=== PATIENT | female | born 1970 | race Caucasian/White ===

== ENCOUNTER 2018-01-22 19:24 | Emergency (ER) | payer OTHER, SELFPAY ==
[2018-01-22 19:25] VITALS: BP 164/96; PULSE 95; RESP 18; TEMP 36.7; O2SAT 99; BMI 36.6
--- NOTE | 2018-01-22 19:59 | ED.VISSUMM ---
- ER Visit Summary Date of Service: 01/22/18 Chief Complaint: Headache History of Present Illness: The patient is a 47 F presenting for evaluation secondary to headache. Patient reports over the course of the last week she has had sinus congestion, sinus pressure, and frontal headache. It has been associated with nausea and chills. She does endorse that she has some rhinorrhea, denies any sore throat. No vomiting or diarrhea. No visual changes numbness or weakness. Qprq-lje-kenbrud remedies have not alleviated this. Physical Examination: Vital signs: Within normal limits General: Well-nourished well-developed no acute distress Head: Normocephalic atraumatic, no temporal artery tenderness or vesicular rash noted. Right maxillary sinus tenderness to percussion. TMs show serous effusion bilaterally Eyes: PERRLA, EOMI. Neck: Supple, no lymphadenopathy, no JVD no meningismus. Negative Brudzinski, Kernig, jolt, and heel strike Cardiovascular: Heart regular rate and rhythm no murmurs Respiratory: Lung sounds clear to auscultation bilaterally no respiratory distress Abdomen: Soft, nontender Extremities: Nontender, no edema Skin: Normal color, no rash, no evidence of petechia Neuro: Alert and oriented ?4, cranial nerves II through XII intact, normal strength, sensation Test Results: None indicated Emergency Department Course and Treatment: Patient presented with symptoms of bacterial sinusitis. Patient was treated with Toradol doxycycline and Afrin. She will be discharged with a course of doxycycline, Naprosyn, and Afrin Disposition: Discharge Impression: 1. Bacterial sinusitis This note was generated with [employer] dictation software. It may contain incorrect words, spelling, and punctuation that were not noted in review of the chart prior to signing ED Disposition - Plan for ED Patient: Disposition: Home or Assisted Living Chief Complaint: Headache Diagnosis: Bacterial sinusitis Instructions: ED Headache Sinus Prescriptions: Naproxen [Naprosyn] 500 mg PO BID PRN #20 tab Doxycycline Hyclate 100 mg PO BID #28 cap
--- NOTE | 2018-01-22 20:03 | ED.DCSUM_ITS ---
- ER Visit Summary Date of Service: 01/22/18 Chief Complaint: Headache History of Present Illness: The patient is a 47 F presenting for evaluation secondary to headache. Patient reports over the course of the last week she has had sinus congestion, sinus pressure, and frontal headache. It has been associa riddhi with nausea and chills. She does endorse that she has some rhinorrhea, denies any sore throat. No vomiting or diarrhea. No visual changes numbness or weakness. Noew-bco-cnupulp remedies have not alleviated this. Physical Examination: Vital signs: Within normal limits General: Well-nourished well-developed no acute distress Head: Normocephalic atraumatic, no temporal artery tenderness or vesicular rash noted. Right maxillary sinus tenderness to percussion. TMs show serous effusion bilaterally Eyes: PERRLA, EOMI. Neck: Supple, no lymphadenopathy, no JVD no meningismus. Negative Brudzinski, Kernig, jolt, and heel strike Cardiovascular: Heart regular rate and rhythm no murmurs Respiratory: Lung sounds clear to auscultation bilaterally no respiratory distress Abdomen: Soft, nontender Extremities: Nontender, no edema Skin: Normal color, no rash, no evidence of petechia Neuro: Alert and oriented ?4, cranial nerves II through XII intact, normal strength, sensation Test Results: None indicated Emergency Department Course and Treatment: Patient presented with symptoms of bacterial sinusitis. Patient was treated with Toradol doxycycline and Afrin. She will be discharged with a course of doxycycline, Naprosyn, and Afrin Disposition: Discharge Impression: 1. Bacterial sinusitis This note was generated with [employer] dictation software. It may contain incorrect words, spelling, and punctuation that were not noted in review of the chart prior to signing ED Disposition - Plan for ED Patient: Disposition: Home or Assisted Living Chief Complaint: Headache Diagnosis: Bacterial sinusitis Instructions: ED Headache Sinus Prescriptions: Naproxen [Naprosyn] 500 mg PO BID PRN #20 tab Doxycycline Hyclate 100 mg PO BID #28 cap
[2018-01-22] MEDS: Doxycycline 100 MG CAPSULE PO (20:22)
[2018-01-22] MEDS: Ketorolac 30 MG/ML Syringe IM (20:22)
[2018-01-22] MEDS: Oxymetazoline 0.05% 1 SPRAY SPRAY.BTL 2 SPRAY NASAL (20:34)
[2018-01-22] MEDS: Ondansetron ODT 4 MG Tablet PO (20:34)
--- OUTSIDE RECORDS SUMMARY | 2018-04-26 10:13 | XMS RPT_ITS ---
:1970 Author Organization [facility] Care Team Providers Name Role Phone John Bernal Attending Unavailable Primay Care Physicia, No Primary Care Unavailable PROBLEMS PROBLEMS DATE TYPE CONDITION / ATTENDING STATUS SOURCE CODE 11/03/2017 Active Pain in right NA Active [facility] foot / Other [place] M79.671(ICD-10) Repository 11/03/2017 Active Pain in right NA Active [facility] ankle and Other [place] joints of right Repository foot / M25.571(ICD-10) 11/03/2017 Admitting Unknown / NA Active [facility] diagnosis UNK(Unknown) Health System Repository PROCEDURES PROCEDURES No Procedure Records FoundRESULTS RESULTS EMERGENCY DEPARTMENT Observed: 01/23/2018 Status: C Source: [place] SUMMARY 8:54 AM [facility] REPOSITORY [facility] Medical Records Department [address] [place] [address] Emergency Department Summary 01/22/181958 MR#: [id number] Acct: [id number] Name: GALE CHUN Rep #: [id number] : 1970 47 From: John Bernal MD PCP: Care Physician, No Primary Status: DEP ER ADDENDUM by Reji Weaver MD on 01/23/18 at 0853 At 0850 I was contacted by pharmacy regarding prescription for doxycycline. I was informed the medication was not covered on his insurance plan and the cost was greater than $80. The prescription was changed to Augmentin 875 mg tab 1 twice daily #20, which is covered by his insurance plan. Date Reji Weaver MD cc: No Primary Care Physician * Addendum - ER Visit Summary Date of Service: 01/22/18 Chief Complaint: Headache History of Present Illness: The patient is a 47 F presenting for evaluation secondary to headache. Patient reports over the course of the last week she has had sinus congestion, sinus pressure, and frontal headache. It has been associated with nausea and chills. She does endorse that she has some rhinorrhea, denies any sore throat. No vomiting or diarrhea. No visual changes numbness or weakness. Syus-dzr-ddwodfq remedies have not alleviated this. Physical Examination: Vital signs: Within normal limits General: Well-nourished well-developed no acute distress Head: Normocephalic atraumatic, no temporal artery tenderness or vesicular rash noted. Right maxillary sinus tenderness to percussion. TMs show serous effusion bilaterally Eyes: PERRLA, EOMI. Neck: Supple, no lymphadenopathy, no JVD no meningismus. Negative Brudzinski, Kernig, jolt, and heel strike Cardiovascular: Heart regular rate and rhythm no murmurs Respiratory: Lung sounds clear to auscultation bilaterally no respiratory distress Abdomen: Soft, nontender Extremities: Nontender, no edema Skin: Normal color, no rash, no evidence of petechia Neuro: Alert and oriented 4, cranial nerves II through XII intact, normal strength, sensation Test Results: None indicated Emergency Department Course and Treatment: Patient presented with symptoms of bacterial sinusitis. Patient was treated with Toradol doxycycline and Afrin. She will be discharged with a course of doxycycline, Naprosyn, and Afrin Disposition: Discharge Impression: 1. Bacterial sinusitis This note was generated with [employer] dictation software. It may contain incorrect words, spelling, and punctuation that were not noted in review of the chart prior to signing ED Disposition - Plan for ED Patient: Disposition: Home or Assisted Living Chief Complaint: Headache Diagnosis: Bacterial sinusitis Instructions: ED Headache Sinus Prescriptions: Naproxen [Naprosyn] 500 mg PO BID PRN #20 tab Doxycycline Hyclate 100 mg PO BID #28 cap What to do if you have Problems For any increased pain, shortness of breath, bleeding, nausea or vomiting, chest pain, or any unexpected problems, contact your Primary Care Provider. Call [facility] ([phone]) or report to the closest Emergency Room. Call 911 if necessary. 01/23/18 0019 <Electronically signed by John Beranl MD> Date John Bernal MD Cosigner Signature (If Indicated): Date CC: No Primary Care Physician FOOT 3V AP/LAT/OBL Observed: 11/03/2017 Status: F Source: [facility] 10:32 PM HEALTH SYSTEM REPOSITORY Performed at [facility] APPROVED BY: LULU DUNN MD Right ankle and foot on 11/03/2017. HISTORY: Right dorsal and plantar foot pain that radiates to right ankle. No known injury. COMPARISON: None. FINDINGS: 3 views right ankle demonstrate no fracture, gross malalignment or evidence of tibiotalar joint effusion. There is bimalleolar soft tissue prominence which could represent swelling or baseline habitus. 3 views right foot demonstrate no acute fracture or dislocation. Normal variant developmental fusion of the 5th DIP joint. Relatively low attenuating soft tissue prominence dorsal to the metatarsals could similarly represent baseline habitus, with an element of soft tissue swelling not excluded. Mild relative joint space narrowing at the lateral first MTP joint. IMPRESSION: No fracture or gross malalignment of the right ankle or foot. Soft tissue prominence in the bimalleolar and dorsal metatarsal distributions could represent baseline habitus or element of swelling, requiring clinical correlation. ANKLE 3V AP/LAT/OBL Observed: 11/03/2017 Status: F Source: [facility] 10:32 PM HEALTH SYSTEM REPOSITORY Performed at [facility] APPROVED BY: LULU DUNN MD Right ankle and foot on 11/03/2017. HISTORY: Right dorsal and plantar foot pain that radiates to right ankle. No known injury. COMPARISON: None. FINDINGS: 3 views right ankle demonstrate no fracture, gross malalignment or evidence of tibiotalar joint effusion. There is bimalleolar soft tissue prominence which could represent swelling or baseline habitus. 3 views right foot demonstrate no acute fracture or dislocation. Normal variant developmental fusion of the 5th DIP joint. Relatively low attenuating soft tissue prominence dorsal to the metatarsals could similarly represent baseline habitus, with an element of soft tissue swelling not excluded. Mild relative joint space narrowing at the lateral first MTP joint. IMPRESSION: No fracture or gross malalignment of the right ankle or foot. Soft tissue prominence in the bimalleolar and dorsal metatarsal distributions could represent baseline habitus or element of swelling, requiring clinical correlation. 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 States she recently moved here from [facility] and has been staying at a hotel. States she's been on the treadmill, elliptical, and exercise bike at a hotel and believes that she is wearing the wrong shoes. States after running on the treadmill on 11/01/17 she can to have pain to the dorsal aspect of the right foot, worse with walking. States his pain is gradually worsened over the past 3 days. She denies numbness/tingling, fall/injury/trauma, color change, and any other pain. History provided by: Patient and medical records court interpreter used: No PAST MEDICAL HISTORY Diagnosis Date - Psychiatric disorder depression - Renal disorder PAST SURGICAL HISTORY Procedure Laterality Date - CHOLECYSTECTOMY HX No family history on file. Social History Social History Main Topics - Smoking status: Current Every Day Smoker - Smokeless tobacco: Never Used - Alcohol use No - Drug use: Unknown - Sexual activity: Not on file ALLERGIES No Known Allergies Review of Systems Constitutional: Negative for chills and fever. HENT: Negative for sore throat. Eyes: Negative for redness. Respiratory: Negative for shortness of breath. Cardiovascular: Negative for chest pain. Gastrointestinal: Negative for abdominal pain, diarrhea, nausea and vomiting. Genitourinary: Negative for dysuria. Musculoskeletal: Negative for back pain and neck pain. R foot pain radiating up into R ankle Skin: Negative for color change and rash. Neurological: Negative for dizziness, syncope, weakness, numbness and headaches. Psychiatric/Behavioral: Negative for confusion. Physical Exam BP 163/87 Pulse 75 Temp 97.9 Resp 16 Wt 236 lb (107.0kg) SpO2 98% LMP 10/21/2017 Physical Exam Constitutional: She is oriented to person, place, and time. She appears well-developed and well-nourished. No distress. HENT: Head: Normocephalic and atraumatic. Eyes: Conjunctivae and EOM are normal. Neck: Normal range of motion. Neck supple. Cardiovascular: Normal rate, regular rhythm, normal heart sounds and intact distal pulses. Exam reveals no gallop and no friction rub. No murmur heard. Pulmonary/Chest: Effort normal and breath sounds normal. No respiratory distress. She has no wheezes. She has no rales. Musculoskeletal: Normal range of motion. She exhibits no edema or deformity. Right knee: She exhibits normal range of motion. No tenderness found. Right ankle: She exhibits no swelling, no deformity, no laceration and normal pulse. Tenderness. AITFL (Minimal) tenderness found. No lateral malleolus and no medial malleolus tenderness found. Right lower leg: She exhibits no tenderness, no bony tenderness and no swelling. Right foot: There is tenderness (Dorsal and lateral aspect). There is normal range of motion, no swelling, normal capillary refill, no crepitus and no deformity. Neurological: She is alert and oriented to person, place, and time. Skin: Skin is warm and dry. Capillary refill takes less than 2 seconds. No rash noted. She is not diaphoretic. Psychiatric: She has a normal mood and affect. Nursing note and vitals reviewed. 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 HISTORY: Right dorsal and plantar foot pain that radiates to right ankle. No known injury. COMPARISON: None. FINDINGS: 3 views right ankle demonstrate no fracture, gross malalignment or evidence of tibiotalar joint effusion. There is bimalleolar soft tissue prominence which could represent swelling or baseline habitus. 3 views right foot demonstrate no acute fracture or dislocation. Normal variant developmental fusion of the 5th DIP joint. Relatively low attenuating soft tissue prominence dorsal to the metatarsals could similarly represent baseline habitus, with an element of soft tissue swelling not excluded. Mild relative joint space narrowing at the lateral first MTP joint. IMPRESSION: No fracture or gross malalignment of the right ankle or foot. Soft tissue prominence in the bimalleolar and dorsal metatarsal distributions could represent baseline habitus or element of swelling, requiring clinical correlation. XR ANKLE GENERAL 3V AP/LAT/OBL RT Result Value Ref Range Community Service Officer Coordinator Right ankle and foot on 11/03/2017. HISTORY: Right dorsal and plantar foot pain that radiates to right ankle. No known injury. COMPARISON: None. FINDINGS: 3 views right ankle demonstrate no fracture, gross malalignment or evidence of tibiotalar joint effusion. There is bimalleolar soft tissue prominence which could represent swelling or baseline habitus. 3 views right foot demonstrate no acute fracture or dislocation. Normal variant developmental fusion of the 5th DIP joint. Relatively low attenuating soft tissue prominence dorsal to the metatarsals could similarly represent baseline habitus, with an element of soft tissue swelling not excluded. Mild relative joint space narrowing at the lateral first MTP joint. IMPRESSION: No fracture or gross malalignment of the right ankle or foot. Soft tissue prominence in the bimalleolar and dorsal metatarsal distributions could represent baseline habitus or element of swelling, requiring clinical correlation. Procedures ED Course / Clinical Impression Clinical Impressions as of Nov 03 2325 Right foot pain Acute right ankle pain MDM / Disposition / Plan Repeat BP was 163/87. Pt denies CP, SOB, DUBON above baseline (states chronic DUBON's that have been worked up). HR 77 on repeat. Findings from review of results with radiologist include no fx/malalignment of the R ankle or foot. soft tissue prominence bimalleolar and dorsal metatarsal distributions could represent baseline habitus or element of swelling. . Acute fx/dislocation considered as differential diagnoses. Differential diagnoses were considered less likely because of the following reasons imaging negative. . Management decisions include Pt given lucero wrap and post op shoe. area of swelling to dorsal aspect correllates with pain. Recommended pt follow up within one week with PCP for follow up, for possible re-imaging of foot if pain persists, and for repeat BP check. Pt states no hx of HTN. States she's stressed with her recent move here. . Disposition The patient was discharged. Counseled patient regarding radiology results. As well as the need for follow-up. Discharged home with verbal and written instructions. They were instructed to return as needed for persistent or worsening symptoms or any new concerns. Condition at disposition is stable. SIGNATURE: Nataliia Ford PA-C This note was created using [employer] software. All reasonable efforts were made to correct any errors, however, some may be present due to the nature of the software. ZE Gilmore (Pa) 11/03/172326 ED NOTE Observed: 11/03/2017 Status: COMPLETED Source: [place] 10:01 PM [facility] [place] REPOSITORY [facility] ID: [id number] Author: Soledad CokerRn) ANGIE Cook Service: Emergency Medicine Author Type: Registered Nurse Type: ED Notes Filed: 11/03/2017 10:01 PM Note Text: Patient has right foot pain, since Monday ALLERGIES ALLERGIES DATE TYPE / CODE NAME / CODE REACTION SEVERITY SOURCE 01/22/2018 Drug No Known Unknown [facility] Allergy/416 Allergies/[id number] [facility] [id number](SNOM 0388(RXNORM) Repository ED CT) Drug NO KNOWN [facility] Class/04690 ALLERGIES Other [place] 1003(SNOMED Repository CT) [id number] NO KNOWN [facility] 6(SNOMED ALLERGIES Health System CT) Repository ENCOUNTERS ENCOUNTERS ADMIT/DISCHARGE ACCOUNT NUMBER ADMITTING ENCOUNTER LOCATION SOURCE CLASS 01/22/2018/01/23/20 [id number] Emergency [facility] [address] [place] [address] ing:ED Repository 11/03/2017/11/04/19 [id number] Emergency [address] Other [place] Repository 11/03/2017/11/04/19 [id number] Emergency [facility] [address] [place] [address] System [facility] Repository g:AKEDBRoom: EDBed: 02 PAYERS PAYERS ENCOUNTER GUARANTOR PAYER SUBSCRIBER SOURCE 01/22/2018 GALE L Primary GALE L [facility] [id number] Insurance:MEDICAL SCHMIDTDOB[id number] [address]Sio: Number: Repository [id number] (HP) Date:[id number] [address]UL: 01/22/2018 Secondary NOT GIVENUNK Adams Insurance:SELF PAY [facility] Number: Effective Repository Date:2018-01-22
== END 2018-01-22 20:37 | disposition home or self-care (01) ==
PROVIDERS: Emergency Provider Emergency Medicine
DX: J32.9 Chronic sinusitis, unspecified (principal); B96.89 Other specified bacterial agents as the cause of diseases classified elsewhere; H92.09 Otalgia, unspecified ear; R11.0 Nausea
CPT/HCPCS: 96372; 99283

== ENCOUNTER 2018-09-19 04:51 | Emergency (ER) | payer OTHER, SELFPAY ==
[2018-09-19 04:51] VITALS: BP 131/84; PULSE 83; RESP 16; TEMP 36.6; O2SAT 97; BMI 35.8
[2018-09-19 04:54] VITALS: BP 131/84; PULSE 83; RESP 16; TEMP 36.6; O2SAT 97
--- NOTE | 2018-09-19 04:56 | CT_ITS ---
STUDY: CT ABDOMEN AND PELVIS WITHOUT CONTRAST REASON FOR EXAM: Female, 47 years old. Right-sided flank pain RADIATION DOSAGE (If Supplied By Facility): CTDIvol = ( 20.28 ) mGy, DLP = ( 1104.64 ) mGycm TECHNIQUE: Transaxial images were obtained from the dome of the diaphragm to the symphysis pubis without oral contrast, and without intravenous contrast. Sagittal and coronal images were reconstructed. Individualized dose optimization techniques were used for this CT. COMPARISON: None. FINDINGS: This is a limited non-IV nonoral contrast study. The visualized lung bases are unremarkable. The visualized portions of the heart are within normal limits. There is prior cholecystectomy with surgical clips within the gallbladder fossa. There is mild liver enlargement. There is mild diffuse hypodensity within the liver.. Normal spleen. Normal pancreas. Normal bilateral adrenal glands. Normal right kidney. Normal left kidney. There is no renal or ureteral calculi. There is no hydronephrosis. Normal visualized stomach. Normal small intestine. There is a moderate colonic fecal load. The appendix is visualized and appears normal. Normal abdominal aorta. Normal inferior vena cava. Normal retroperitoneum. Normal urinary bladder. There is mild cervix enlargement. There is hypodensities more air bubbles in the region of the vagina and cervix. Normal abdominal wall. There is bilateral spondylolysis at L5 with disc space narrowing disc osteophyte complex moderate bilateral foraminal stenosis. There is 5 mm posterior listhesis of S1 on L5. There is posterior bulging annulus at L4-L5. There is Moderate left foraminal stenosis and no significant right foraminal stenosis. There is bony density adjacent to the left superior facet of L5 projecting into the left foramen which is an osteophyte and/or old avulsion injury. There is 1 cm hypodensity left ovary likely an ovarian cyst. CT/Abdomen/Pelvis without Cont IMPRESSION: Limited non-IV and nonoral contrast study No renal or ureteral calculi or hydronephrosis Prior cholecystectomy, fatty infiltration of liver, mild hepatomegaly Moderate colonic fecal load suspicious for partial fecal impaction bilateral spondylolysis at L5 with disc space narrowing disc osteophyte complex moderate bilateral foraminal stenosis. There is 5 mm posterior listhesis of S1 on L5. There is posterior bulging annulus at L4-L5. There is Moderate left foraminal stenosis and no significant right foraminal stenosis. There is bony density adjacent to the superior facet of L5 projecting into the left foramen which is an osteophyte and/or old avulsion injury. If the patient is symptomatic MRI lumbar spine could be further evaluated. 1 cm likely left ovarian cyst Mild cervical enlargement. There is nonspecific air within the region of the cervix and vagina that should be correlated with clinical history and pelvic exam Electronically Signed: Roshan Pardo, at 6:23 EDT Tel , Service support ,
--- NOTE | 2018-09-19 04:57 | ED.VISSUMM ---
- ER Visit Summary Date of Service: 09/19/18 Chief Complaint: Right abdominal and flank pain History of Present Illness: The patient is a 47 F who has right abdominal and flank pain. Started 5 days ago. It sharp and starts in her back and radiates to the anterior part of the abdomen on the right side. Some positions make the pain better. She has had nausea, vomiting and diarrhea. No dysuria or hematuria. Denies any fevers. She has had a cholecystectomy in the past. She took nothing for this pain at home. Physical Examination: Vital signs reviewed. HEENT exam unremarkable. Heart is regular rate and rhythm without murmurs. Lungs are clear to auscultation. Abdomen is soft with right-sided tenderness to palpation. There is no guarding or rebound tenderness. Extremities reveal no edema. Skin exam normal. Neurologic exam normal. Test Results: Laboratory studies are all unremarkable including urinalysis. CAT scan reveals nothing specific Emergency Department Course and Treatment: Patient was given morphine and Zofran with improvement of symptoms. Her labs and imaging showed nothing specific. She could have a viral enteritis especially with her diarrhea and vomiting. There is a moderate colonic fecal load on the CAT scan. I will give her some Bentyl and Zofran for home. She will call her doctor for follow-up Treatment Plan: [] Disposition: Discharge Impression: Abdominal pain, nausea/vomiting/diarrhea This note was generated with Watchsend dictation software. It may contain incorrect words, spelling, and punctuation that were not noted in review of the chart prior to signing ED Disposition - Plan for ED Patient: Referrals: Care Physician,No Primary [Primary Care Provider] -
[2018-09-19] MEDS: Morphine 4 MG/ML Syringe IV (05:15)
[2018-09-19] MEDS: Ondansetron 4 MG/2 ML Vial IV (05:15)
[2018-09-19 05:16] LABS: Absolute Lymphocyte Count 2.73 X10^3/uL (0.83-4.51); Absolute Neutrophil Count 5.7 X10^3/uL (2.0-7.7); Basophil# 0.05 X10^3/uL; Basophil% 0.5 % (0-1); Eosinophil# 0.11 X10^3/uL; Eosinophils% 1.2 % (0-5); Hematocrit 43.4 % (37-47); Hemoglobin 14.6 g/dL (12.0-15.0); Lymphocyte # 2.73 X10^3/ul (4.0); Lymphocyte % 29.9 % (19-41); Mean Corp Hgb Conc 33.6 g/dL (32-36); Mean Corpuscular Hgb 31.4 pg (27.0-32.0); Mean Corpuscular Volume 93.3 fL (81-99); Mean Platelet Vol. 10.3 fl (6.2-12.0); Monocyte% 5.5 % (0-10); NRBC Flagged by Analyzer 0 % (0-5); Neutrophil % 62.4 % (47-70); Platelet Count 251 K/mm3 (150-450); RBC Distribution Width CV 12.7 % (11.6-14.6); RBC Distribution Width SD 43.4 fl (35.1-43.9); Red Blood Count 4.65 M/mm3 (4.2-5.4); White Blood Count 9.1 K/mm3 (4.4-11.0)
[2018-09-19 05:39] LABS: ALB/GLOB Ratio 1.1 RATIO (0.9-2.4); AST(SGOT) 11 U/L (15-37); Alanine Aminotransfer ALT/SGPT 28 U/L (13-56); Albumin, Serum 3.6 g/dL (3.2-5.0); Alkaline Phosphatase 75 U/L (45-117); Anion Gap 6 (5-15); BUN 12 mg/dL (7-18); BUN/Creat Ratio 18.5 RATIO (10-20); Chloride 106 mmol/L (98-107); Creatinine, Serum 0.65 mg/dL (0.55-1.02); EST Glomerular Filtration Rate 103 mL/min (>60); Est Glom Filt Rate - Afr Amer 124 mL/min (>60); Estimated Creatinine Clearance 105.61 ml/min; Globulin 3.3 g/dL (2.2-4.2); Glucose 85 mg/dL (74-106); Lipase 130 U/L (73-393); Potassium 3.9 mmol/L (3.5-5.1); Protein, Total 6.9 g/dL (6.4-8.2); Sodium Level 140 mmol/L (136-145)
[2018-09-19 06:00] LABS: Bacteria 0 SEEN /hpf (None Seen); Mucous, Urine 0 SEEN /hpf (<or=2+); Red Blood Cells-Urine 0 SEEN /hpf (0-5); White Blood Cells 0 SEEN /hpf (0-5)
[2018-09-19 06:02] LABS: Color, Urine Yellow (Yellow); Glucose, Dipstick Normal (Normal); Ketone-Dipstick 50 mg/dl (Negative); Leukocyte Esterase-Dipstick Negative /ul (Negative); Nitrite-Dipstick Negative (Negative); Occult Blood-Urine Negative /ul (Negative); Protein-Dipstick Negative (Negative); Specific Gravity, Urine 1.015 (1.002-1.030); Urine Bilirubin Dipstick Negative (Negative); Urine Clarity Clear (Clear); Urine Urobilinogen Normal (Normal)
[2018-09-19 06:08] LABS: Squamous Epithelial Cells - UA 0-5 SEEN /hpf (5-10)
--- NOTE | 2018-09-19 06:26 | ED.DEP ---
ED Disposition - Plan for ED Patient: Disposition: Home or Assisted Living Instructions: ABDOMINAL PAIN, Unknown Cause, (Female) Prescriptions: Dicyclomine HCl [Bentyl] 20 mg PO TIDAC #20 cap Prescription Printed Ondansetron [Zofran Odt] 4 mg PO Q8H PRN PRN #10 tab PRN Reason: Nausea Prescription Printed Referrals: Care Physician,No Primary [Primary Care Provider] -
[2018-09-19 06:38] VITALS: BP 130/80; PULSE 74; RESP 16; TEMP 36.6; O2SAT 97
== END 2018-09-19 06:40 | disposition home or self-care (01) ==
PROVIDERS: Emergency Provider Emergency Medicine
DX: R10.9 Unspecified abdominal pain (principal); R11.2 Nausea with vomiting, unspecified; R19.7 Diarrhea, unspecified; Z72.0 Tobacco use; Z90.49 Acquired absence of other specified parts of digestive tract
CPT/HCPCS: 74176; 80053; 81001; 83690; 85025; 96374; 96375; 99283; A4216; J2405

== ENCOUNTER 2018-11-22 12:55 | Emergency (ER) | payer OTHER, SELFPAY ==
[2018-11-22 12:55] VITALS: BP 147/90; PULSE 109; RESP 16; TEMP 36.6; O2SAT 98; BMI 35.3
[2018-11-22 13:09] VITALS: RESP 16
--- NOTE | 2018-11-22 13:10 | CT_ITS ---
STUDY: CT ABDOMEN AND PELVIS WITHOUT CONTRAST REASON FOR EXAM: Female, 48 years old. Right flank pain. Nausea and vomiting. History of kidney stones. RADIATION DOSAGE (If Supplied By Facility): CTDIvol = ( 20.87 ) mGy, DLP = ( 1146.89 ) mGycm TECHNIQUE: Transaxial images were obtained from the dome of the diaphragm to the symphysis pubis without oral contrast, and without intravenous contrast. Sagittal and coronal images were reconstructed. Individualized dose optimization techniques were used for this CT. COMPARISON: Comparison is made with prior study September 19, 2018. FINDINGS: Minimal degree of dependent bibasilar atelectasis. The visualized portions of the heart are within normal limits. There is decreased attenuation of the liver consistent with steatosis. There are surgical clips in the gallbladder fossa consistent with a prior cholecystectomy. Normal spleen. Normal pancreas. Normal bilateral adrenal glands. Normal right kidney. Normal left kidney. There is a small hiatal hernia. Normal small intestine. Normal colon. The appendix is visualized and appears normal. Normal abdominal aorta. Normal inferior vena cava. There is borderline retroperitoneal lymphadenopathy with enlarged nodes no greater than 10mm in the short axis diameter. Normal urinary bladder. Small follicles are seen in both ovaries. Normal abdominal wall. Minimal anterior listhesis of L5 on S1 with spondylolysis of the pars interarticularis at the L5 vertebrae. CT/Abdomen/Pelvis without Cont IMPRESSION: Hepatomegaly and fatty infiltration of the liver. No ureteral obstruction is seen. Electronically Signed: Brady Rousseau, at 14:55 EDT , Service support ,
[2018-11-22 13:23] LABS: Absolute Lymphocyte Count 2.53 X10^3/uL (0.83-4.51); Absolute Neutrophil Count 4.8 X10^3/uL (2.0-7.7); Basophil# 0.07 X10^3/uL; Basophil% 0.9 % (0-1); Eosinophil# 0.13 X10^3/uL; Eosinophils% 1.6 % (0-5); Hematocrit 47.4 % (37-47); Hemoglobin 15.4 g/dL (12.0-15.0); Lymphocyte # 2.53 X10^3/ul (4.0); Lymphocyte % 31.4 % (19-41); Mean Corp Hgb Conc 32.5 g/dL (32-36); Mean Corpuscular Hgb 30.7 pg (27.0-32.0); Mean Corpuscular Volume 94.6 fL (81-99); Mean Platelet Vol. 10.3 fl (6.2-12.0); Monocyte# 0.54 X10^3/uL; Monocyte% 6.7 % (0-10); NRBC Flagged by Analyzer 0 % (0-5); Neutrophil # 4.77 X10^3/uL (2.7-7.7); Neutrophil % 59.2 % (47-70); Platelet Count 280 K/mm3 (150-450); RBC Distribution Width CV 12.4 % (11.6-14.6); RBC Distribution Width SD 43.2 fl (35.1-43.9); Red Blood Count 5.01 M/mm3 (4.2-5.4); White Blood Count 8.1 K/mm3 (4.4-11.0)
--- NOTE | 2018-11-22 13:31 | ED.VIS.GEN ---
History of Present Illness Chief Complaint: Flank Pain Informant: Patient Onset: Month(s) Current Severity: Mild Narrative: Patient is been having intermittent right flank pain for a month or more associate with loose diarrheal watery type diarrhea, the etiology of all the above is unclear no antibiotics no exposures she does not have any history of colitis, she has not been exposed to anyone who is been ill, indicates the pain intensified today and she came in for evaluation, she reports that 5 years or more ago she had a colonoscopy that was unremarkable she is status post cholecystectomy years ago her urine outputs been unremarkable Past Medical History - Allergies and Home Meds Allergies/Adverse Reactions: Allergies No Known Allergies Allergy (Verified 11/22/18 12:57) Primary Care Physician: Jose Luis Reeves [NON-STAFF] - Care Physician,No Primary [Primary Care Provider] - Past Medical History: - - Includes as above cholecystectomy Smoking Status: Current every day smoker Review of Systems General: Denies: Chills, Fever, Sweats Eyes: Denies: Visual changes - bilaterally, Diplopia ENT: Denies: Rhinorrhea, Sore throat Cardiovascular: Denies: Chest pain, Palpitations Respiratory: Denies: Dyspnea, Cough, Dyspnea on exertion Gastrointestinal: Reports: Abdominal pain, Diarrhea. Denies: Nausea, Vomiting, Melena, Hematochezia Genitourinary: Denies: Dysuria, Hematuria, Frequency Musculoskeletal: Denies: Back pain, Extremity Pain Skin: Denies: Rash, Wounds Neurological: Denies: Headache, Weakness, Numbness Physical Exam Vital Signs/Narrative: Vital Signs Temp Pulse Resp BP Pulse Ox 11/22/18 13:09 16 11/22/18 12:55 98 F 109 H 16 147/90 H 98 General: Well nourished, Well developed, No Acute Distress Head: Normocephalic, Atraumatic Eyes: Perrl, EOMI ENT: Moist mucous membranes, No rhinorrhea Neck: Supple, Nontender Cardiovascular: Regular rate, Regular rhythm, No murmurs Respiratory: No distress, CTA bilaterally, Chest nontender Abdomen: Soft, Nontender, Nondistended, Normal bowel sounds, - - She has no rebound or guarding she is a very nonspecific pain to the right flank area there is no fullness mass rebound or guarding Back: Nontender, Normal Inspection Extremities: Nontender, No edema Skin: Normal color, No rash Neurological: Alert, Oriented x3, Cranial nerves II-XII grossly intact, Normal Strength, Normal Sensation Psychological: Normal affect, Normal Mood Diagnostic/Tx/Re-eval - Medical Decision Making He has been having the symptoms for over a month consisting of intermittent flank pain and diarrhea clinically there is no obvious explanation at this time given her complaint screening labs IV fluids CT abdomen pelvis The patient screening labs are all generally unremarkable as is UA, the patient's CT abdomen pelvis per radiology is negative for all, she is still considering the ability to provide the stool samples, at this time given the negative work-up given the long duration of her symptoms she agrees it is safe to discharge her home for outpatient and with her providers she is in a bland diet and return for change in symptoms Home stable Impression final Right flank pain etiology unclear diarrheal illness ED Disposition - Plan for ED Patient: Instructions: FLANK PAIN, Uncertain Cause Prescriptions: Ondansetron [Zofran Odt] 4 mg PO Q8H PRN PRN #10 tab PRN Reason: Nausea Prescription Printed Referrals: Care Physician,No Primary [Primary Care Provider] - Jose Luis Reeves [NON-STAFF] -
[2018-11-22 13:34] LABS: Anion Gap 4 (5-15); BUN 9 mg/dL (7-18); BUN/Creat Ratio 13.8 RATIO (10-20); Calcium,Total 8.9 mg/dL (8.5-10.1); Chloride 108 mmol/L (98-107); Creatinine, Serum 0.65 mg/dL (0.55-1.02); EST Glomerular Filtration Rate 102 mL/min (>60); Est Glom Filt Rate - Afr Amer 123 mL/min (>60); Estimated Creatinine Clearance 104.45 ml/min; Glucose 100 mg/dL (74-106); Potassium 4.1 mmol/L (3.5-5.1); Sodium Level 140 mmol/L (136-145)
[2018-11-22] MEDS: 0.9% Normal Saline 1,000 ML 250 ML IV (13:56)
[2018-11-22] MEDS: Ondansetron 4 MG/2 ML Vial IV (13:56)
[2018-11-22] MEDS: morphine 8 MG/ML Syringe IV (13:57)
[2018-11-22 14:00] LABS: Internal QC Validated? YES +Cl - CLEAR BKGD; Pregnancy, Serum, hCG Quali. NEGATIVE Negative
[2018-11-22 14:39] LABS: Mucous, Urine 0 SEEN /hpf (<or=2+); Red Blood Cells-Urine 0 SEEN /hpf (0-5)
[2018-11-22 14:40] VITALS: BP 127/72; PULSE 64; RESP 16; O2SAT 97
[2018-11-22 14:41] LABS: Color, Urine Yellow (Yellow); Glucose, Dipstick Normal (Normal); Ketone-Dipstick Negative (Negative); Leukocyte Esterase-Dipstick 25 /ul (Negative); Nitrite-Dipstick Negative (Negative); Occult Blood-Urine Negative /ul (Negative); Protein-Dipstick Negative (Negative); Specific Gravity, Urine 1.015 (1.002-1.030); Urine Bilirubin Dipstick Negative (Negative); Urine Clarity Sl. Cloudy (Clear); Urine Urobilinogen Normal (Normal)
[2018-11-22 14:50] LABS: Amorphous Sediment 2+; Bacteria 2+ /hpf (None Seen); Squamous Epithelial Cells - UA 10-25 SEEN /hpf (5-10); White Blood Cells 0-5 SEEN /hpf (0-5)
[2018-11-22 15:08] VITALS: RESP 16
== END 2018-11-22 15:20 | disposition home or self-care (01) ==
LOC: ED 13:30
PROVIDERS: Emergency Provider Emergency Medicine
DX: R10.9 Unspecified abdominal pain (principal); R19.7 Diarrhea, unspecified; F17.200 Nicotine dependence, unspecified, uncomplicated; Z90.49 Acquired absence of other specified parts of digestive tract
CPT/HCPCS: 74176; 80048; 81001; 84703; 85025; 96361; 96374; 96375; 99284; J7030; A4216; J2405

== ENCOUNTER 2019-06-27 06:46 | Emergency (ER) | payer OTHER, SELFPAY ==
[2018-12-09 13:04] VITALS: BMI 35.3
[2019-06-27] VITALS (9 sets, daily range): BP systolic 116–145; BP diastolic 72–106; PULSE 62–87; RESP 11–18; TEMP 36.7–37; O2SAT 98–99; BMI 39.3
--- NOTE | 2019-06-27 07:13 | RAD_ITS ---
STUDY: X-RAY CHEST REASON FOR EXAM: Female, 48 years old. CP X FEW MONTHS, WORSE LAST THREE DAYS TECHNIQUE: Frontal view COMPARISON: None. FINDINGS: The lungs are clear and expanded. There is no demonstrated pleural abnormality. Normal size heart. Normal mediastinum and deshawn. Normal visualized pulmonary arteries. Normal visualized aortic arch and descending thoracic aorta. Normal visualized thoracic spine. Normal visualized ribs, clavicles, and shoulders. There is no demonstrated abnormality of the visualized soft tissue structures of the upper abdomen. RAD/Chest 1 View (Portable) IMPRESSION: Normal x-ray examination of the chest. Electronically Signed: Dave Robert MD at 7:47 EDT , Service support ,
--- NOTE | 2019-06-27 07:13 | EKG12_ITS ---
Test Reason : CP Blood Pressure : / mmHG Vent. Rate : 076 BPM Atrial Rate : 076 BPM P-R Int : 162 ms QRS Dur : 088 ms QT Int : 408 ms P-R-T Axes : 043 032 058 degrees QTc Int : 459 ms Normal sinus rhythm Nonspecific T wave abnormality Abnormal ECG Confirmed by ROZINA SMITH, EUGENIA ([id number]), editor greeting card JUVENCIO HEWITT ([id number]) on 07/02/2019 2:57:39 PM Referred By: PATRICIA Confirmed By:EUGENIA HANDY MD
--- NOTE | 2019-06-27 07:14 | ED.VIS.CHEST ---
History of Present Illness Chief Complaint: Chest Pain Informant: Patient Onset: Weeks Activity at onset: Unknown Timing: Intermittent Quality: Aching, Dull Location: Right Chest Worsened By: Nothing Relieved By: Nothing Associated Symptoms: Dyspnea. Negative for: Nausea, Vomiting, Diaphoresis, Cough, Fever, Lightheadedness, Acid Reflux, Palpitations Narrative: Patient is a 48-year-old female with history of anxiety, depression and migraine headaches presenting with chest pain. Patient states she is had intermittent right chest pain for the past month and a half however since yesterday it has been constant. She states the pain intermittently radiates into her jaw and down her right arm. She has some associated numbness in her right hand. She states after the past few days she is also felt short of breath. She describes the shortness of breath as feeling like I cannot take a deep breath. Patient denies any associated cough, nausea, vomiting, abdominal pain or urinary symptoms. She states she feels a little swollen in her fingers today but attributes that to eating [place] food last night. She notes she has had increased stress due to intermittent for lows at work. She states that she is a tobacco smoker. Her father has a history of multiple MIs and stents as well as hypertension. She is not sure how old he was when he had his first 1. She states she does not have a primary care doctor and her last physical exam was at least 3 years ago. She never had a stress test. She denies any other complaints at this time. Patient does nots that she feels like she is going through menopause as she has has hot flashes especially at night and difficulty sleeping at night. Prior Similar Symptoms: No CVD Risk Factors: Smoking Past Medical History - Allergies and Home Meds Allergies/Adverse Reactions: Allergies No Known Allergies Allergy (Verified 06/27/19 06:52) Primary Care Physician: Care Physician,No Primary [Primary Care Provider] - Past Medical History: - - Migraine headaches, depression, anxiety Surgical History: cholecystectomy Smoking Status: Current every day smoker Review of Systems General: Denies: Chills, Fever, Sweats Eyes: Denies: Visual changes - bilaterally, Diplopia ENT: Denies: Rhinorrhea, Sore throat Cardiovascular: Reports: Chest pain. Denies: Palpitations Respiratory: Reports: Dyspnea. Denies: Cough, Dyspnea on exertion Gastrointestinal: Denies: Abdominal pain, Nausea, Vomiting, Diarrhea, Melena, Hematochezia Genitourinary: Denies: Dysuria, Hematuria, Frequency Musculoskeletal: Denies: Back pain, Extremity Pain Skin: Denies: Rash, Wounds Neurological: Denies: Headache, Weakness, Numbness Physical Exam Vital Signs/Narrative: Vital Signs Temp Pulse Resp BP Pulse Ox 06/27/19 06:47 98.0 F 87 16 133/92 H 99 Inital Vital Signs reviewed: Yes General: Well nourished, Well developed, Obese, No Acute Distress Head: Normocephalic, Atraumatic Eyes: Perrl, EOMI ENT: Moist mucous membranes, No rhinorrhea, TM's clear Neck: Supple, Nontender, No JVD Cardiovascular: Regular rate, Regular rhythm, No murmurs Respiratory: No distress, Chest nontender, Diminished - Diminished at the bases bilaterally Abdomen: Soft, Nontender, Nondistended, Normal bowel sounds Back: Nontender, Normal Inspection Extremities: Nontender, No edema. Negative for: Edema Skin: Normal color, No rash Neurological: Alert, Oriented x3, Cranial nerves II-XII grossly intact, Normal Strength, Normal Sensation Psychological: Normal affect, Normal Mood Diagnostic/Tx/Re-eval Chest X-Ray - ED: 1 View, Read by ED Physician, Read by Radiologist, No Acute Disease CTA PE Study: No Evidence of PE Clinical Impression(s) from Imaging Studies Chest X-Ray 06/27/19 07:13 IMPRESSION: Normal x-ray examination of the chest. Electronically Signed: Dave Robert MD at 7:47 EDT , Service support , Chest CTA 06/27/19 07:43 IMPRESSION: No aortic dissection, aneurysm or pulmonary embolism No pneumonia, pleural effusion or pneumothorax Minimal air trapping/congestion Electronically Signed: Ortiz Aguilar DO at 8:24 EDT Tel , Service support , Laboratory Data 06/27/19 06/27/19 06/27/19 06:54 06:54 06:54 WBC 7.5 RBC 4.69 Hgb 14.5 Hct 45.2 MCV 96.4 MCH 30.9 MCHC 32.1 RDW Std Deviation 44.6 H RDW Coeff of Al 12.7 Plt Count 266 MPV 10.6 Immature Gran % (Auto) 0.400 Neut % (Auto) 50.6 Lymph % (Auto) 38.9 Jewell % (Auto) 7.7 Eos % (Auto) 1.7 Baso % (Auto) 0.7 Absolute Neuts (auto) 3.8 Absolute Lymphs (auto) 2.92 Nucleated RBC % 0 D-Dimer Quant (PE/DVT) 0.55 H* Sodium 141 Potassium 4.0 Chloride 110 H Carbon Dioxide 28.0 Anion Gap 3 L BUN 12 Creatinine 0.78 Estim Creat Clear Calc 83.91 Est GFR (MDRD) Af Amer 101 Est GFR (MDRD) Non-Af 83 BUN/Creatinine Ratio 15.4 Glucose 108 H Calcium 8.7 Troponin I < 0.015 - Rhythm Strip Rhythm Strip: Sinus Rhythm Rate: 76 Ectopy: None - EKG Initial EKG Interpretation: Sinus Rhythm, - - Sinus rhythm at a rate of 76 Normal intervals Normal axis Nonspecific T wave inversions in aVR, aVL, V1 and V2 No prior EKG available for comparison Treatment: NTG SL, Toradol IV JACEY Risk: No Positive JACEY Elements Score: 0 - Medical Decision Making Patient is evaluated for chest pain. Chest pain is been intermittent for a month and a half but persistent for over 24 hours. EKG showed nonspecific T wave changes there is no prior to compare to. Her troponin is negative. No significant electrolyte abnormality and grossly normal CBC. As patient was eliciting shortness of breath I did check a d-dimer. This is mildly elevated. CT PE study was negative. Patient heart score is 3. As patient's pain is been constant for over 24 hours I think one troponin is sufficient at this time. Patient states she would just like to follow-up outpatient. She is referred to a PCP and a irish moss bleacher that she has neither. Patient is given nitroglycerin in the emergency room with no relief of her chest pain. She is been given Toradol. Patient does develop a headache after the sublingual nitroglycerin and is offered Tylenol but patient declines. Patient does express frustration that she had all these test done and still does not know the cause of her pain. Patient is counseled that while there does not appear to be an emergent cause of pain or signs of an acute cardiac or infectious process she should still follow-up with cardiology and PCP as a might be able to provide further testing and further answers. Patient is offered admission for further cardiac evaluation as she does not have stylish PCP to follow-up with but declines. Patient is counseled on signs and symptoms requiring return to the emergency room. Patient verbalizes agreement and understand this plan. Patient discharged home in stable and improved condition. ED Disposition - Plan for ED Patient: Diagnosis: Chest pain of uncertain etiology Instructions: ED Chest Pain Atypical Unkn Cause Referrals: Linette Arias MD [STAFF PHYSICIAN] - Rafat Wills MD [STAFF PHYSICIAN] - Additional Instructions: The exact cause of your chest pain is not clear today. It does not appear that you are having an acute heart attack, have signs of acute stress on the heart, have a blood clot in the lungs or any type of infection. I do recommend that you have further follow-up with cardiology for a stress test. You have also been referred to a primary care doctor for further follow-up. Please return the emergency room with any worsening or changing symptoms.
[2019-06-27 07:19] LABS: Absolute Lymphocyte Count 2.92 X10^3/uL (0.83-4.51); Absolute Neutrophil Count 3.8 X10^3/uL (2.0-7.7); Basophil# 0.05 X10^3/uL; Basophil% 0.7 % (0-1); Eosinophil# 0.13 X10^3/uL; Eosinophils% 1.7 % (0-5); Hematocrit 45.2 % (37-47); Hemoglobin 14.5 g/dL (12.0-15.0); Lymphocyte # 2.92 X10^3/ul (4.0); Lymphocyte % 38.9 % (19-41); Mean Corp Hgb Conc 32.1 g/dL (32-36); Mean Corpuscular Hgb 30.9 pg (27.0-32.0); Mean Corpuscular Volume 96.4 fL (81-99); Mean Platelet Vol. 10.6 fl (6.2-12.0); Monocyte# 0.58 X10^3/uL; Monocyte% 7.7 % (0-10); NRBC Flagged by Analyzer 0 % (0-5); Neutrophil % 50.6 % (47-70); Platelet Count 266 K/mm3 (150-450); RBC Distribution Width CV 12.7 % (11.6-14.6); RBC Distribution Width SD 44.6 fl (35.1-43.9); Red Blood Count 4.69 M/mm3 (4.2-5.4); White Blood Count 7.5 K/mm3 (4.4-11.0)
[2019-06-27 07:34] LABS: Anion Gap 3 (5-15); BUN 12 mg/dL (7-18); BUN/Creat Ratio 15.4 RATIO (10-20); Calcium,Total 8.7 mg/dL (8.5-10.1); Chloride 110 mmol/L (98-107); Creatinine, Serum 0.78 mg/dL (0.55-1.02); EST Glomerular Filtration Rate 83 mL/min (>60); Est Glom Filt Rate - Afr Amer 101 mL/min (>60); Estimated Creatinine Clearance 83.91 ml/min; Glucose 108 mg/dL (74-106); Sodium Level 141 mmol/L (136-145)
[2019-06-27] MEDS: Aspirin 81 MG TAB.CHEW 324 MG PO (07:41)
[2019-06-27 07:42] LABS: D-Dimer Quantitative (DVT/PE) 0.55 FEU/ug/m (0.27-0.49)
[2019-06-27] MEDS: Nitroglycerin SL (ED/IMG/CATH) 0.4 MG TABLET SUBLINGUAL ×3 (07:43→07:53)
--- NOTE | 2019-06-27 07:43 | CT_ITS ---
STUDY: CTA CHEST REASON FOR EXAM: Female, 48 years old. Chest pain radiating into right arm/jaw, SOB, elevated D-dimer. RADIATION DOSAGE (If Supplied By Facility): CTDIvol = ( 11.47 ) mGy, DLP = ( 516.50 ) mGycm TECHNIQUE: The examination was performed with the intravenous administration of 100mL [id number]. Post-processing of the angiographic images was performed, with multiplanar reformation and 3D reconstruction. Individualized dose optimization techniques were used for this CT. COMPARISON: June 27, 2019. FINDINGS: HEART: Normal. AORTA/GREAT VESSELS: No dissection. No aneurysm. No significant vascular calcifications. PULMONARY ARTERIES: No embolism. No hypertension. LUNGS/AIRWAYS: Minimal air trapping/congestion. No focal patchy airspace opacities. No lung mass. No suspicious lung nodules. Central airways patent. PLEURA: No pneumothorax. No pleural effusion. MEDIASTINUM/THYROID: Normal. SOFT TISSUES: No acute process. OSSEOUS STRUCTURES: Nonspecific nonaggressive appearing punctate T2 vertebral body sclerosis (statistically benign; sagittal image 164 series 602). No acute cortical breakthrough. Osteopenia. Mild endplate spondylosis. No dislocation. No fracture. UPPER ABDOMEN/ESOPHAGUS: Hepatic steatosis. Cholecystectomy. No acute process. CT/CTA Chest W/WO Contrast IMPRESSION: No aortic dissection, aneurysm or pulmonary embolism No pneumonia, pleural effusion or pneumothorax Minimal air trapping/congestion Electronically Signed: Ortiz Aguilar DO at 8:24 EDT Tel , Service support ,
[2019-06-27] MEDS: Ketorolac 15 MG/ML Vial IV (08:22)
--- NOTE | 2019-06-27 08:53 | ED.RN ---
WENT INTO DISCHARGE PT, PT HAD PULLED OUT OWN IV AND IS VISIBLY UPSET THAT SHE HAS NO ANSWERS. ENCOURAGED PT TO FOLLOW UP WITH PCP.
== END 2019-06-27 08:55 | disposition home or self-care (01) ==
PROVIDERS: Emergency Provider Emergency Medicine
DX: R07.9 Chest pain, unspecified (principal); F17.210 Nicotine dependence, cigarettes, uncomplicated; E66.9 Obesity, unspecified
CPT/HCPCS: 71045; 71275; 80048; 84484; 85025; 85379; 93005; 96374; 99285; J7030; Q9967

== ENCOUNTER → 2020-08-27 07:37 | Outpatient (CLI) | payer BC, SELFPAY ==
[2019-06-27 06:47] VITALS: BMI 39.3
--- NOTE | 2020-08-27 07:39 | BI_ITS ---
MAMMOGRAPHY - BILATERAL SCREENING REASON FOR EXAM: Female, 49 years old. Routine annual screening examination. PERTINENT HISTORY: Non-contributory. TECHNIQUE: Digital bilateral breast coty (3D mammographic acquisition) in the CC and MLO projections. 2-D mediolateral oblique (MLO) and craniocaudad (CC) views of both breasts were obtained. CAD: Full Field Digital Mammography with Computer Added Detection was performed. COMPARISON: No comparison mammograms available at this time. If any prior films become available, an addendum to this report can be generated. FINDINGS: Breast Composition: The breasts are almost entirely fatty. There are no dominant masses or suspicious calcifications. Benign appearing bilateral axillary nodes. No other significant abnormalities are identified. BI/SCRN MAMM (CAD)W/COTY BILAT IMPRESSION: Negative screening mammogram. Yearly followup mammogram recommended. (A) ASSESSMENT CATEGORY: BIRADS Category 2: Benign. A letter regarding these results will be sent to the patient by the facility within 30 days. Approximately 10% of breast cancers are not detected by mammography. A normal mammogram should not delay biopsy of a clinically suspicious abnormality. [id number] Electronically Signed: Brady Rousseau MD at 9:03 EDT , Service support ,
--- NOTE | 2020-08-27 08:33 | BD_ITS ---
STUDY: DUAL ENERGY X-RAY ABSORPTIOMETRY / DXA REASON FOR EXAM: Female, 49 years old. [id number] TECHNIQUE: Bone Mineral Density (BMD) measurements of lumbar spine and bilateral hips were obtained. COMPARISON: None. FINDINGS: Lumbar Spine (L1-L4): g/cm2 (1.136) / T-score (0.8) / Z-score (1.7) Findings are suggestive of normal bone density with a low fracture risk. Left Femur Total: g/cm2 (1.218) / T-score (2.3) / Z-score (2.8) Left Femoral Neck: g/cm2 (1.025) / T-score (1.6) / Z-score (2.4) Right Femur Total: g/cm2 (1.231) / T-score (2.4) / Z-score (2.9) Right Femoral Neck: g/cm2 (0.966) / T-score (1.1) / Z-score (1.9) BD/Dexa Bone Density Study IMPRESSION: The patient is considered normal as outlined below according to World Jose Organization (WHO) criteria with a low fracture risk. Reference Information: The T-score is the number of standard deviations above or below the standard which is normal for young adults at their peak bone mineral density. The World Health Organization (WHO) interprets the T-scores as follows: Above -1 Normal bone density Between -1 and -2.5 Osteopenia Equal to / or below -2.5 Osteoporosis As a practical clinical guideline, osteopenia may be graded as follows: Mild -1 through -1.5 Moderate -1.6 through -2.0 Severe -2.1 through -2.4 The Z-score is the number of standard deviations above or below age-matched controls. A Z-score of less than -1.5 would be considered abnormal. References: 1. NIH Osteoporosis and Related Bone Diseases www osteo.org 2. International Society for Clinical Densitometry www iscd.org 3. National Osteoporosis Foundation www nof.org Electronically Signed: Brady Rousseau MD at 14:25 EDT , Service support ,
== END ==
PROVIDERS: Referring Provider Nurse Practitioner; Visit Provider Nurse Practitioner
DX: Z12.31 Encounter for screening mammogram for malignant neoplasm of breast (principal); Z78.0 Asymptomatic menopausal state
CPT/HCPCS: 77063; 77067; 77080

== ENCOUNTER 2020-10-28 04:55 | Emergency (ER) | payer BC, SELFPAY ==
[2020-10-28 04:56] VITALS: PULSE 66; RESP 16; TEMP 36.6; O2SAT 99; BMI 39.3
[2020-10-28 05:01] VITALS: BP 121/78
--- NOTE | 2020-10-28 05:09 | EKG12_ITS ---
Test Reason : ABDOMINAL PAIN Blood Pressure : / mmHG Vent. Rate : 067 BPM Atrial Rate : 067 BPM P-R Int : 164 ms QRS Dur : 092 ms QT Int : 444 ms P-R-T Axes : 029 028 037 degrees QTc Int : 469 ms Normal sinus rhythm Low voltage QRS Borderline ECG Confirmed by ROZINA SMITH, EUGENIA ([id number]), welding equipment sales representative LUAN SWENSON ([id number]) on 10/29/2020 1:46:38 PM Referred By: PL Confirmed By:EUGENIA HANDY MD
--- NOTE | 2020-10-28 05:10 | CT_ITS ---
EXAM: CT ABDOMEN AND PELVIS WITH INTRAVENOUS CONTRAST : 1970 CLINICAL INDICATION: abd pain TECHNIQUE: Helically acquired images were obtained of the abdomen and pelvis with intravenous contrast. This CT exam was performed using one or more of the following dose reduction techniques: automated exposure control, adjustment of the mA and/or kV according to patient size, and/or use of iterative reconstruction technique. This report was created using [employer]teroc[employer] report generation technology. CONTRAST: IV 100mL [id number] COMPARISON: 11/22/18 FINDINGS: LOWER THORAX: Unremarkable. Lung bases are clear. No cardiomegaly. No significant pericardial effusion. ABDOMEN: LIVER: Unremarkable. Homogeneous. No focal mass. GALLBLADDER AND BILE DUCTS: Cholecystectomy. No intra- or extrahepatic biliary ductal dilation. PANCREAS: Unremarkable. No focal cystic or solid mass. SPLEEN: Unremarkable. Normal size without focal cystic or solid mass. ADRENALS: Unremarkable. No nodules. KIDNEYS AND URETERS: Unremarkable. Normal renal size and position. No hydronephrosis. STOMACH AND BOWEL: Unremarkable. No stomach or bowel distention. No focal inflammatory change. PELVIS: APPENDIX: No evidence of acute appendicitis. BLADDER: Unremarkable. REPRODUCTIVE: Unremarkable as visualized. No mass. ABDOMEN and PELVIS: INTRAPERITONEAL SPACE: Unremarkable. No ascites or other fluid collection. No free air. BONES/JOINTS: Degenerative changes of the spine. L5 pars defects. No suspicious lytic or blastic abnormality. SOFT TISSUES: Unremarkable. No discrete abdominal or pelvic wall hernia. VASCULATURE: Unremarkable. Abdominal aorta is non-dilated. LYMPH NODES: Unremarkable. No enlarged lymph nodes. CT/Abdomen/Pelvis W IV Cont ONLY IMPRESSION: No acute findings in the abdomen or pelvis. No urinary stones identified on the current exam. Individualized dose optimization techniques were used for this CT. at 0707 Reported and signed by: Jose Santana MD Electronically Signed: Jose Santana MD at 7:07 EDT Tel , Service support ,
--- NOTE | 2020-10-28 05:14 | EDS_ITS ---
HPI HPI - GI History of Present Illness Chief Complaint: Abd Pain Informant: patient Narrative Narrative: Patient presents with pain in her right upper quadrant. This started about 6 days ago. It is starting to spread a little bit down in the lower abdomen and around the back. She has never had chest pain. She has no dyspnea. No cough. She has had nausea this whole time. The pain is been there the whole time although it does go somewhat up and down. There is a tendency to worsen somewhat with food. However she has been able to eat food during this time. She only eats small amounts. She did vomit on Monday and Monday. No blood was seen. Her stools are somewhat soft but this is not uncommon. She has not seen blood or a significant change in color. No fevers or chills. She has no recent travel, surgery, immobilization, personal or family history of DVT or PE. This patient is already had her gallbladder out about 20 years ago. She had a colonoscopy that was normal about 2 to 3 months ago. She states she u rinates somewhat frequently but she drinks a lot of fluid and this is not uncommon. She has had a kidney stone but feels that this is not quite the same as that pain although its been quite some time. She has not had hematuria. [facility] Medical History (Updated 10/28/20 @ 07:[address] Rubens Shukla MD) Hx of migraines Home Medications multivitamin with minerals 1 tab PO DAILY 09/19/18 [History Last Taken Unknown] calcium carbonate 500 mg PO DAILY 06/27/19 [History Last Taken Unknown] cetirizine 10 mg PO DAILY 06/27/19 [History Last Taken Unknown] magnesium 200 mg PO DAILY 06/27/19 [History Last Taken Unknown] vitamin B complex 1 ea PO DAILY 06/27/19 [History Last Taken Unknown] esomeprazole magnesium [Nexium] 40 mg PO DAILY #30 cap 10/28/20 [Rx Last Taken Unknown] ondansetron 4 mg PO Q8H PRN #10 tab 10/28/20 [Rx Last Taken Unknown] oxycodone-acetaminophen [Percocet] 1 tab PO Q6H PRN 3 Days #10 tab 10/28/20 [Rx Last Taken Unknown] Allergy/AdvReac Type Severity Reaction Status Date / Time No Known Allergies Allergy Verified 05/21/20 06:52 Surgical History (Updated 10/28/20 @ 05:36 by Erin Alvarenga) History of cholecystectomy Social History Smoking Status: Current some day smoker tobacco type: cigarettes ROS ROS ED Constitutional Constitutional ED: Denies chills or fever(s) ENT ENT ED: Denies rhinorrhea or sore throat Cardiovascular Cardiovascular: Denies chest pain, orthopnea, palpitations or paroxysmal nocturnal dyspnea Respiratory/Chest Respiratory/Chest: Denies cough, dyspnea, dyspnea on exertion, orthopnea, paroxysmal nocturnal dyspnea or sputum Gastrointestinal Gastrointestinal: Reports abdominal pain, nausea and vomiting; Denies constipation, diarrhea or melena Genitourinary Genitourinary ED: Reports urinary frequency; Denies dysuria or hematuria Musculoskeletal Musculoskeletal: Denies neck pain Integumentary Denies rash Neurologic Neurologic: Denies paresthesias Endocrine Endocrinology: Reports other Details: Patient purposely drinks a lot of water during the day. But it does not sound like she has polyuria polydipsia. ; Denies polydipsia or polyuria Hematologic/Lymphatic Hematologic/Lymphatic: Denies easy bleeding or easy bruising Allergic/Immunologic Allergic/Immunologic ED: Denies urticaria EXAM Physical Exam Const Vital Signs: 10/28/20 04:56 10/28/20 05:01 Temperature 97.9 F Temperature Source Oral Pulse Rate 66 Respiratory Rate 16 Blood Pressure 121/78 H Blood Pressure Mean 92 Pulse Ox 99 Oxygen Delivery Method Room Air Positive well nourished, well developed and obese Constitutional Narrative: Patient looks mildly uncomfortable but nontoxic. General Appearance ED: well developed Nutritional Appearance: obese HEENT Reports moist mucous membranes Eyes General Eye ED: Negative for pale conjunctiva or scleral icterus Neck no JVD Resp normal respiratory effort and clear to auscultation bilaterally Resp Narrative: Patient takes good deep breaths. No pain. No rales or rhonchi or wheezes. Does not induce coughing. Effort and Inspection: Negative for pain with movement Auscultation: Negative for rales, rhonchi or wheezes Cardio regular rate, regular rhythm and no murmurs GI non-distended and no masses GI Narrative: Bowel sounds seem normal. Abdomen is some mild obesity but no distention. It is soft. She has mostly tenderness in the right upper quadrant in the epigastric area. The other quadrants have just very minimal tenderness. There is no guarding or rebound in any area. No CVA tenderness. Auscultation: normoactive bowel sounds Palpation: soft Back/Spine no CVA tenderness Extremity full ROM Neuro Sensorium / Orientation: alert and oriented to person Psych mental status grossly normal Skin Skin Narrative: I see no vesicles anywhere in the area of discomfort. Of note, patient has had the shingles vaccination. Rashes: no rashes MDM MDM MDM Narrative Medical decision making narrative: Patient's blood work shows normal CBC, electrolytes, liver function test, and urinalysis. CAT scan also shows no sign of acute process. They also saw no sign of ductal dilatation. Patient is feeling better. She states the pain is coming back a little bit. She still has a little bit of nausea. We will try to help this out. I explained that I am not seeing a cause of her symptoms. Since she does have epigastric and right upper quadrant pain I will treat as though this could be ulcer disease. She is not having any pleuritic pain or trouble breathing. She is not having pelvic pain. I see no rashes. I have no indication of reason for muscular strain. Her symptoms are related to eating. We did discuss reasons to return that would include worsening pain, recurrent vomiting, fevers or other or new symptoms. Lab Data Attestation: I reviewed the patient's lab results. Labs: Laboratory Results - last 24 hr 10/28/20 10/28/20 10/28/20 05:30 05:30 05:30 WBC 6.7 RBC 4.44 Hgb 13.6 Hct 41.6 MCV 93.7 MCH 30.6 MCHC 32.7 RDW Std Deviation 44.2 H RDW Coeff of Al 12.7 Plt Count 256 MPV 10.4 Immature Gran % (Auto) 0.100 Neut % (Auto) 56.9 Lymph % (Auto) 35.0 Graves % (Auto) 6.1 Eos % (Auto) 1.2 Baso % (Auto) 0.7 Absolute Neuts (auto) 3.8 Absolute Lymphs (auto) 2.35 Nucleated RBC % 0 Sodium 138 Potassium 3.5 Chloride 104 Carbon Dioxide 31.0 Anion Gap 3 L BUN 15 Creatinine 0.72 Estim Creat Clear Calc 89.89 Est GFR (MDRD) Af Amer 110 Est GFR (MDRD) Non-Af 91 BUN/Creatinine Ratio 20.9 H Glucose 96 Calcium 8.8 Total Bilirubin 0.50 AST 21 ALT 42 Alkaline Phosphatase 82 Total Protein 7.3 Albumin 3.6 Globulin 3.7 Albumin/Globulin Ratio 1.0 Lipase 90 Serum , Qual NEGATIVE Urine Color Urine Clarity Urine pH Ur Specific [place] Urine Protein Urine Glucose (UA) Urine Ketones Urine Occult Blood Urine Nitrite Urine Bilirubin Urine Urobilinogen Ur Leukocyte Esterase Urine RBC Urine WBC Ur Squamous Epith Cells Urine Bacteria Urine Mucus 10/28/20 06:00 WBC RBC Hgb Hct MCV MCH MCHC RDW Std Deviation RDW Coeff of Al Plt Count MPV Immature Gran % (Auto) Neut % (Auto) Lymph % (Auto) [place] % (Auto) Eos % (Auto) Baso % (Auto) Absolute Neuts (auto) Absolute Lymphs (auto) Nucleated RBC % Sodium Potassium Chloride Carbon Dioxide Anion Gap BUN Creatinine Estim Creat Clear Calc Est GFR (MDRD) Af Amer Est GFR (MDRD) Non-Af BUN/Creatinine Ratio Glucose Calcium Total Bilirubin AST ALT Alkaline Phosphatase Total Protein Albumin Globulin Albumin/Globulin Ratio Lipase Serum , Qual Urine Color Yellow Urine Clarity Clear Urine pH 6.0 Ur Specific [place] 1.020 Urine Protein Negative Urine Glucose (UA) Normal Urine Ketones 5 H Urine Occult Blood Negative Urine Nitrite Negative Urine Bilirubin Negative Urine Urobilinogen Normal Ur Leukocyte Esterase Negative Urine RBC 0 SEEN Urine WBC 0 SEEN Ur Squamous Epith Cells 0-5 SEEN Urine Bacteria 0 SEEN Urine Mucus 0 SEEN Radiography Diagnostic Testing: Radiology Impression Abdomen/Pelvis CT 10/28/20 05:10 IMPRESSION: No acute findings in the abdomen or pelvis. No urinary stones identified on the current exam. Individualized dose optimization techniques were used for this CT. at 0707 Reported and signed by: Jose Santana MD Electronically Signed: Jose Santana MD at 7:07 EDT Tel , Service support , EKG Initial EKG: Comments: EKG done for upper abdominal pain in a 49-year-old female. EKG read by me shows a sinus rhythm with overall rate of 67. No acute ST elevation or depression. She does have some mild decreased voltage throughout. SD interval, QRS duration and QTc normal. Discharge Plan Triage Chief Complaint: Abd Pain ED Provider: Rubens Shukla Dx/Rx/DC Orders Instructions: ED Abdominal Pain Unkn Cause Fem Prescriptions: New oxycodone-acetaminophen [Percocet] 5-325 mg tablet 1 tab PO Q6H PRN (Reason: pain) 3 Days Qty: 10 RF: 0 esomeprazole magnesium [Nexium] 40 mg capsule,delayed release(DR/EC) 40 mg PO DAILY Qty: 30 RF: 0 ondansetron 4 mg tablet,disintegrating 4 mg PO Q8H PRN (Reason: nausea and vomiting) Qty: 10 RF: 0 No Action multivitamin with minerals 1 EACH tablet 1 tab PO DAILY RF: 0 calcium carbonate 500 MG tablet 500 mg PO DAILY RF: 0 vitamin B complex 1 EACH capsule 1 ea PO DAILY RF: 0 magnesium 200 MG tablet 200 mg PO DAILY RF: 0 cetirizine 10 MG capsule 10 mg PO DAILY RF: 0 Primary Care Provider: Kat Jose NP Referrals: Kat Jose ORTHODONTIC TREATMENT COORDINATOR, ORTHODONTIC TREATMENT COORDINATOR-C [Primary Care Provider] - 1-2 Days if not improving Disposition Disposition: Home, Self Care
[2020-10-28] MEDS: 0.9% Normal Saline 1,000 ML 1000 ML IV (05:31)
[2020-10-28] MEDS: Morphine 4 MG/ML Syringe IV ×2 (05:32→07:34)
[2020-10-28] MEDS: Ondansetron 4 MG/2 ML Vial IV (05:32)
[2020-10-28 05:47] LABS: Absolute Lymphocyte Count 2.35 X10^3/uL (0.83-4.51); Absolute Neutrophil Count 3.8 X10^3/uL (2.0-7.7); Basophil# 0.05 X10^3/uL; Basophil% 0.7 % (0-1); Eosinophil# 0.08 X10^3/uL; Eosinophils% 1.2 % (0-5); Hematocrit 41.6 % (37-47); Hemoglobin 13.6 g/dL (12.0-15.0); Lymphocyte # 2.35 X10^3/ul (0.83-4.51); Mean Corp Hgb Conc 32.7 g/dL (32-36); Mean Corpuscular Hgb 30.6 pg (27.0-32.0); Mean Corpuscular Volume 93.7 fL (81-99); Mean Platelet Vol. 10.4 fl (6.2-12.0); Monocyte# 0.41 X10^3/uL; Monocyte% 6.1 % (0-10); NRBC Flagged by Analyzer 0 % (0-5); Neutrophil # 3.82 X10^3/uL (2.7-7.7); Neutrophil % 56.9 % (47-70); Platelet Count 256 K/mm3 (150-450); RBC Distribution Width CV 12.7 % (11.6-14.6); RBC Distribution Width SD 44.2 fl (35.1-43.9); Red Blood Count 4.44 M/mm3 (4.2-5.4); White Blood Count 6.7 K/mm3 (4.4-11.0)
[2020-10-28 06:01] LABS: Internal QC Validated? YES +Cl - CLEAR BKGD; Pregnancy, Serum, hCG Quali. NEGATIVE Negative
[2020-10-28 06:05] LABS: AST(SGOT) 21 U/L (15-37); Alanine Aminotransfer ALT/SGPT 42 U/L (13-56); Albumin, Serum 3.6 g/dL (3.2-5.0); Alkaline Phosphatase 82 U/L (45-117); Anion Gap 3 (5-15); BUN 15 mg/dL (7-18); BUN/Creat Ratio 20.9 RATIO (10-20); Calcium,Total 8.8 mg/dL (8.5-10.1); Chloride 104 mmol/L (98-107); Creatinine, Serum 0.72 mg/dL (0.55-1.02); EST Glomerular Filtration Rate 91 mL/min (>60); Est Glom Filt Rate - Afr Amer 110 mL/min (>60); Estimated Creatinine Clearance 89.89 ml/min; Globulin 3.7 g/dL (2.2-4.2); Glucose 96 mg/dL (74-106); Lipase 90 U/L (73-393); Potassium 3.5 mmol/L (3.5-5.1); Protein, Total 7.3 g/dL (6.4-8.2); Sodium Level 138 mmol/L (136-145)
[2020-10-28 06:14] LABS: Bacteria 0 SEEN /hpf (None Seen); Mucous, Urine 0 SEEN /hpf (<or=2+); Red Blood Cells-Urine 0 SEEN /hpf (0-5); White Blood Cells 0 SEEN /hpf (0-5)
[2020-10-28 06:15] LABS: Color, Urine Yellow (Yellow); Glucose, Dipstick Normal (Normal); Ketone-Dipstick 5 mg/dl (Negative); Leukocyte Esterase-Dipstick Negative /ul (Negative); Nitrite-Dipstick Negative (Negative); Occult Blood-Urine Negative /ul (Negative); Protein-Dipstick Negative (Negative); Urine Bilirubin Dipstick Negative (Negative); Urine Clarity Clear (Clear); Urine Urobilinogen Normal (Normal)
[2020-10-28 06:23] LABS: Squamous Epithelial Cells - UA 0-5 SEEN /hpf (5-10)
[2020-10-28] MEDS: proMETHazine 25 MG/ML Syringe 12.5 MG IM (07:34)
[2020-10-28 07:41] VITALS: BP 124/82; PULSE 56; RESP 18; O2SAT 97
[2020-10-28 08:20] VITALS: BP 124/68; RESP 16; O2SAT 99
== END 2020-10-28 08:24 | disposition home or self-care (01) ==
PROVIDERS: Emergency Provider Emergency Medicine; PCP Nurse Practitioner
DX: R10.11 Right upper quadrant pain (principal); R11.0 Nausea; E66.9 Obesity, unspecified; F17.210 Nicotine dependence, cigarettes, uncomplicated; Z79.899 Other long term (current) drug therapy; Z87.442 Personal history of urinary calculi; Z90.49 Acquired absence of other specified parts of digestive tract
CPT/HCPCS: 74177; 80053; 81001; 83690; 84703; 85025; 93005; 96361; 96365; 96372; 96374; 96375; 96376; 99283; J7030; Q9967; A4216; J2405; J3490

== ENCOUNTER → 2021-01-26 11:29 | Outpatient (CLI) | payer BC, SELFPAY ==
--- NOTE | 2021-01-26 11:37 | US_ITS ---
STUDY: ULTRASOUND OF THE FEMALE PELVIS - COMPLETE REASON FOR EXAM: Female, 50 years old. ABN BLEEDING LMP: October 2018 TECHNIQUE: Transvaginal TECHNICAL QUALITY: Adequate. COMPARISON: None. FINDINGS: The uterus is anteverted and is in a midline position. The uterus measures 6.6 cm x 4.2 sign by 3.2 cm. Normal uterine cervix. The endometrium measures 2 mm in thickness, and is fluid distended. There is no demonstrated endometrial mass. There is no demonstrated myometrial mass. I.U.D. - The patient does not have an I.U.D. The right ovary is non-visualized. The left ovary is visualized. The left ovary measures 1.9 cm x 1.8 cm x 2 cm. There is no left ovarian cyst or ovarian mass. There is no visualized left adnexal mass or complex lesion. There is normal arterial and normal venous vascularity. There is no fluid in the cul-de-sac. US/Transvaginal Non- IMPRESSION: The endometrium is fluid distended and measures 2 mm. Electronically Signed: Brady Rousseau MD at 14:41 EST , Service support ,
== END ==
LOC: US 11:31
PROVIDERS: PCP Nurse Practitioner; Referring Provider Nurse Practitioner; Visit Provider Nurse Practitioner
DX: N93.9 Abnormal uterine and vaginal bleeding, unspecified (principal)
CPT/HCPCS: 76830

== ENCOUNTER 2021-02-15 15:50 | Outpatient (CLI) | payer BC, SELFPAY ==
[2021-02-16 08:47] LABS: HIV - WCH Non-Reactive (Nonreactive); Hepatitis B Surface Antigen Non-Reactive (Nonreactive); Hepatitis C Antibody Non-Reactive (Nonreactive); Syphilis Antibodies Non-reactive
[2021-02-17 22:06] LABS: Chlamydia By Nucleic Acid AMP Negative (Negative)
[2021-02-18 08:24] LABS: Gonococcus By Nucleic Acid AMP Negative (Negative)
[2021-02-18 09:17] LABS: HPV APTIMA, High Risk Negative (Negative)
== END 2021-02-15 23:59 | disposition short-term general hospital (02) ==
LOC: WOBLAB 15:51
PROVIDERS: PCP Nurse Practitioner; Visit Provider Obstetrics & Gynecology
DX: Z11.3 Encounter for screening for infections with a predominantly sexual mode of transmission (principal)
CPT/HCPCS: 36415; 86703; 86780; 86803; 87340; 87491; 87591; 87624; 88175; G0145

== ENCOUNTER 2021-04-06 15:15 | Emergency (ER) | payer BC, SELFPAY ==
[2021-04-06 15:16] VITALS: BP 150/83; PULSE 86; RESP 15; TEMP 35.8; O2SAT 99; BMI 39.1
--- NOTE | 2021-04-06 15:37 | EX.ED.DYSGE1 ---
HPI History of Present Illness Chief Complaint: Other, Pain/Inj Detail of Chief Complaint: . Multiple symptoms documented in the HPI Informant: patient and spouse/S.O. Onset/Context/Timing Onset: Month(s) Context: - (Does not recall) Timing: Intermittent and Waxes and wanes Quality: Stiffness in the joints numbness left upper extremity and chronic headache Current Severity: Mild Maximum Severity: Moderate Worsened by: Nothing Relieved by: Nothing Associated Symptoms Associated Symptoms: Documented in HPI Narrative Narrative: Patient is a 50-year-old postmenopausal woman who presents with several symptoms. She complains of retro-orbital bifrontal headache that she has had for years. Prior CT and MRIs reportedly negative. She does have history of migraine headaches. She did not fill the prescription for migraine headaches because she is unable to afford it. She denies double vision, blurred vision or loss of vision. Occasionally she will have monocular blurred vision predominantly left side. She denies any alleviating exacerbating or precipitating factors with regard to her headache. Occasionally she will have photophobia. She denies ringing or ears, decreased hearing. She does endorse intermittent sonophobia. She states she has chronic nasal congestion due to allergies. She denies sore throat or change in voice. She also complains of left upper arm numbness in a circumferential pattern from the shoulder to her fingertips. There is is no alleviating, precipitating or aggravating factor. She states normally by this time the numbness goes away and the stiffness in her joints goes away. She also reports swelling of her lower extremities. She denies decreased activity. She denies increased sitting or standing. She denies orthopnea or PND. She denies GI symptoms. She denies change in color, consistency or caliber of her stool. She denies urologic symptoms. She states she is postmenopausal. Has had no vaginal bleeding in years. She denies night sweats. She denies weight gain or weight loss. She does report recent intolerance to cold. She does not report recent hair loss. Prior similar symptoms: Yes Recent Illness/Hospitalization: No [facility] Medical History (Updated 04/06/21 @ 17:[address] Reji Weaver MD) Allergic rhinitis Hx of migraines Home Medications calcium carbonate 500 mg PO DAILY 06/27/19 [History Last Taken Unknown] cetirizine 10 mg PO DAILY 06/27/19 [History Last Taken Unknown] magnesium 200 mg PO DAILY 06/27/19 [History Last Taken Unknown] vitamin B complex 1 ea PO DAILY 06/27/19 [History Last Taken Unknown] ondansetron 4 mg PO Q8H PRN #10 tab 10/28/20 [Rx Last Taken Unknown] Lactobacillus acidophilus 10 mg PO DAILY 11/23/20 [History Last Taken Unknown] Balm's wort 300 mg capsule 300 mg PO DAILY 11/23/20 [History Last Taken Unknown] ascorbic acid (vitamin C) 1,000 mg tablet 1 g PO Q6H 11/23/20 [History Last Taken Unknown] ashwagandha root extract 300 mg capsule mg PO 11/23/20 [History Last Taken Unknown] biotin 1 mg capsule 1 mg PO DAILY 11/23/20 [History Last Taken Unknown] cyclobenzaprine 5 mg tablet 5 mg PO DIRECTED PRN tab 11/23/20 [History Last Taken Unknown] docosahexaenoic acid 200 mg capsule mg PO 11/23/20 [History Last Taken Unknown] fluticasone propionate 50 mcg/actuation nasal spray,suspension 1 spray INTRANASAL DAILY 11/23/20 [History Last Taken Unknown] garlic 5,000 mcg tablet 5 mg PO DAILY 11/23/20 [History Last Taken Unknown] iron 18 mg tablet 18 mg PO DAILY 11/23/20 [History Last Taken Unknown] levocarnitine 500 mg tablet 500 mg PO ONCE 11/23/20 [History Last Taken Unknown] melatonin 5 mg capsule mg PO 11/23/20 [History Last Taken Unknown] milk thistle 150 mg capsule 150 mg PO BID 11/23/20 [History Last Taken Unknown] omega-3 fatty acids 1,000 mg capsule 1,000 mg PO DAILY 11/23/20 [History Last Taken Unknown] potassium 75 mg tablet mg PO 11/23/20 [History Last Taken Unknown] turmeric 400 mg capsule mg PO 11/23/20 [History Last Taken Unknown] hydrochlorothiazide 12.5 mg PO DAILY #30 tab 04/06/21 [Rx Last Taken Unknown] levothyroxine 88 mcg PO DAILY #30 cap 04/06/21 [Rx Last Taken Unknown] Allergy/AdvReac Type Severity Reaction Status Date / Time No Known Allergies Allergy Verified 04/06/21 15:48 Family History Father Hypertension Heart disease Surgical History History of cholecystectomy Social History household members: significant other housing: house Smoking Status: Former smoker quit date: 04/27/20 pack-years: 8 alcohol intake: current alcohol intake frequency: a few times a month what type of physical activity do you participate in: none do you feel safe at home: Yes ROS ROS ED Constitutional Constitutional ED: Denies chills, fever(s), subjective, sweats or weight loss Eyes Eyes: Reports blurry vision; Denies change in vision or diplopia ENT ENT ED: Denies ear pain, rhinorrhea or sore throat Cardiovascular Cardiovascular: Denies chest pain, orthopnea, palpitations or paroxysmal nocturnal dyspnea Respiratory/Chest Respiratory/Chest: Denies cough, dyspnea, dyspnea on exertion, orthopnea or paroxysmal nocturnal dyspnea Gastrointestinal Gastrointestinal: Reports other Details: Intermittent up of constipation and diarrhea. Does not have a formal diagnosis of IBS. ; Denies abdominal pain, constipation, diarrhea, melena, nausea or vomiting Genitourinary Genitourinary ED: Denies dysuria, hematuria or urinary frequency Musculoskeletal Musculoskeletal: Denies arthralgias, back pain, myalgias or neck pain Integumentary Denies Abrasions or rash Neurologic Neurologic: Reports headache(s) and paresthesias; Denies weakness Endocrine Endocrinology: Reports cold intolerance; Denies heat intolerance, polydipsia, polyphagia or polyuria Allergic/Immunologic Allergic/Immunologic ED: Denies mouth swelling or tongue swelling EXAM Physical Exam Const Vital Signs: 04/06/21 15:16 04/06/21 15:50 Temperature 96.5 F L Temperature Source Temporal Pulse Rate 86 Respiratory Rate 15 Respiratory Effort Normal Non-Labored Respiratory Pattern Normal Blood Pressure 150/83 H Blood Pressure Mean 105 Pulse Ox 99 Oxygen Delivery Method Room Air Positive well nourished, well developed and obese General Appearance ED: well developed and NAD; Negative for cyanotic, diaphoretic or pallor Nutritional Appearance: obese HEENT Reports moist mucous membranes HEENT Narrative: Nares patent with slight discharge. Posterior pharyngeal erythema exudate. Uvula midline. No evidence of angioedema. Conjunctival pink. Clear is anicteric. Negative for trauma or tenderness Eyes PERRL and EOMs intact bilaterally General Eye ED: Negative for pale conjunctiva or scleral icterus Neck no lymphadenopathy, supple and no JVD Resp normal respiratory effort and clear to auscultation bilaterally Cardio regular rate, regular rhythm, S1 normal heart sound, S2 normal heart sound and no murmurs GI normal to inspection, nondistended, normoactive bowel sounds and non-tender Palpation: soft Back/Spine no CVA tenderness Thoracic Spine / Upper Back: Negative for thoracic spinal tenderness or paraspinal muscle tenderness Extremity normal to inspection Extremity Narrative: Minimal pedal edema that is pitting General Extremety ED: Yes edema; Negative for tenderness General Extremity: edema Neuro oriented x3, CN's II-XII intact bilaterally and no sensory deficits noted Neuro Narrative: Bicep, brachialis, tricep, patella and ankle reflex are 2+ and symmetric. There is no clonus or Babinski sign. Sensorium / Orientation: alert Motor Exam: strength 5/5 throughout Psych mental status grossly normal Skin no rashes or lesions noted and no wounds General Skin Exam: Negative for jaundice or pallor MDM MDM MDM Narrative Medical decision making narrative: Patient has multiple symptoms that have varied in duration. May represent autoimmune disorder, doubt cervical since patient has circumferential numbness of the left upper extremity and normal neurologic exam. With regards to headache suspect this is her typical headaches and she has had significant work-up with no known etiology. Patient states she is no longer taking herbal supplements. made the comment that she has been on a keto diet. Lab Data Attestation: I reviewed the patient's lab results. Lab results narrative: CBC and differential unremarkable. Comprehensive metabolic panel is unremarkable. TSH is elevated and may explain her cold intolerance. There is no proteinuria or hematuria. Patient has no evidence of endorgan injury. Will start on hydrochlorothiazide 12.5 mg daily. Will also prescribe levothyroxine. Labs: Laboratory Results - last 24 hr 04/06/21 04/06/21 04/06/21 15:55 15:55 16:40 WBC 8.4 RBC 4.70 Hgb 13.8 Hct 43.3 MCV 92.1 MCH 29.4 MCHC 31.9 L RDW Std Deviation 41.9 RDW Coeff of Al 12.3 Plt Count 305 MPV 10.2 Immature Gran % (Auto) 0.500 Neut % (Auto) 62.0 Lymph % (Auto) 31.5 [place] % (Auto) 4.3 Eos % (Auto) 1.2 Baso % (Auto) 0.5 Absolute Neuts (auto) 5.2 Absolute Lymphs (auto) 2.65 Nucleated RBC % 0 ESR 40 H Sodium 138 Potassium 3.6 Chloride 101 Carbon Dioxide 31.0 Anion Gap 6 BUN 16 Creatinine 0.80 Estim Creat Clear Calc 79.99 Est GFR (MDRD) Af Amer 97 Est GFR (MDRD) Non-Af 81 BUN/Creatinine Ratio 20.1 H Glucose 104 Calcium 8.6 Total Bilirubin 0.20 AST 23 ALT 41 Alkaline Phosphatase 116 Total Protein 7.6 Albumin 3.7 Globulin 3.9 Albumin/Globulin Ratio 0.9 TSH 4.81 H Urine Color Yellow Urine Clarity Sl. Cloudy Urine pH 6.0 Ur Specific [place] 1.015 Urine Protein Negative Urine Glucose (UA) Normal Urine Ketones Negative Urine Occult Blood Negative Urine Nitrite Negative Urine Bilirubin Negative Urine Urobilinogen Normal Ur Leukocyte Esterase Negative Urine RBC 0 SEEN Urine WBC 0 SEEN Ur Squamous Epith Cells 0-5 SEEN Amorphous Sediment 3+ URATE Urine Bacteria 0 SEEN Urine Mucus RARE Rhythm Strip Rhythm Strip: Sinus Rhythm Rate: 82 Ectopy: None Discharge Plan Triage Chief Complaint: Other, Pain/Inj ED Provider: Reji Weaver Dx/Rx/DC Orders Clinical Impression: Hypertension, Polyarthralgia, Hypothyroidism, Paresthesia of left upper extremity, Chronic intractable headache Instructions: ED Arthralgia, ED Hypertension New Begin Treatment, ED Hypothyroidism, ED Paraesthesias Prescriptions: New hydrochlorothiazide 12.5 mg tablet 12.5 mg PO DAILY Qty: 30 RF: 0 levothyroxine 88 mcg capsule 88 mcg PO DAILY Qty: 30 RF: 0 No Action fluticasone propionate [Flonase Allergy Relief] 50 mcg/actuation spray,suspension 1 spray intranasal DAILY RF: 0 cyclobenzaprine 5 mg tablet 5 mg PO DIRECTED PRNRF: 0 Balm's wort 300 mg capsule 300 mg PO DAILY RF: 0 biotin 1 mg capsule 1 mg PO DAILY RF: 0 ashwagandha root extract 300 mg capsule PO RF: 0 ascorbic acid (vitamin C) 1,000 mg tablet 1 g PO Q6H RF: 0 turmeric 400 mg capsule PO RF: 0 omega-3 fatty acids 1,000 mg capsule 1,000 mg PO DAILY RF: 0 DHA 200 mg capsule PO RF: 0 iron 18 mg tablet 18 mg PO DAILY RF: 0 melatonin 5 mg capsule PO RF: 0 potassium 75 mg tablet PO RF: 0 garlic 5,000 mcg tablet 5 mg PO DAILY RF: 0 milk thistle 150 mg capsule 150 mg PO BID RF: 0 Lactobacillus acidophilus [Acidophilus] Capsule 10 mg PO DAILY RF: 0 L-Carnitine 500 mg tablet 500 mg PO ONCE RF: 0 calcium carbonate 500 MG tablet 500 mg PO DAILY RF: 0 vitamin B complex 1 EACH capsule 1 ea PO DAILY RF: 0 magnesium 200 MG tablet 200 mg PO DAILY RF: 0 cetirizine 10 MG capsule 10 mg PO DAILY RF: 0 ondansetron 4 mg tablet,disintegrating 4 mg PO Q8H PRN (Reason: nausea and vomiting) Qty: 10 RF: 0 Primary Care Provider: Kat Jose NP Referrals: Kat Jose NP, CONSTRUCTION ELECTRICIAN-C [Primary Care Provider] - 1-2 Weeks (ESR is elevated 40. Patient has polyarthralgia will need outpatient rheumatologic work-up. She was started on levothyroxine for hypothyroidism and her thiazide for hypertension with no evidence of endorgan injury.) Disposition Disposition: Home, Self Care
[2021-04-06 16:25] LABS: ALB/GLOB Ratio 0.9 RATIO (0.9-2.4); AST(SGOT) 23 U/L (15-37); Alanine Aminotransfer ALT/SGPT 41 U/L (13-56); Albumin, Serum 3.7 g/dL (3.2-5.0); Alkaline Phosphatase 116 U/L (45-117); Anion Gap 6 (5-15); BUN 16 mg/dL (7-18); BUN/Creat Ratio 20.1 RATIO (10-20); Calcium,Total 8.6 mg/dL (8.5-10.1); Chloride 101 mmol/L (98-107); EST Glomerular Filtration Rate 81 mL/min (>60); Est Glom Filt Rate - Afr Amer 97 mL/min (>60); Estimated Creatinine Clearance 79.99 ml/min; Globulin 3.9 g/dL (2.2-4.2); Glucose 104 mg/dL (74-106); Potassium 3.6 mmol/L (3.5-5.1); Protein, Total 7.6 g/dL (6.4-8.2); Sodium Level 138 mmol/L (136-145); Thyroid Stim Hormone (TSH) 4.81 uIU/mL (0.358-3.74)
[2021-04-06 16:27] LABS: Absolute Lymphocyte Count 2.65 X10^3/uL (0.83-4.51); Absolute Neutrophil Count 5.2 X10^3/uL (2.0-7.7); Basophil# 0.04 X10^3/uL; Basophil% 0.5 % (0-1); Eosinophils% 1.2 % (0-5); Hematocrit 43.3 % (37-47); Hemoglobin 13.8 g/dL (12.0-15.0); Lymphocyte # 2.65 X10^3/ul (0.83-4.51); Lymphocyte % 31.5 % (19-41); Mean Corp Hgb Conc 31.9 g/dL (32-36); Mean Corpuscular Hgb 29.4 pg (27.0-32.0); Mean Corpuscular Volume 92.1 fL (81-99); Mean Platelet Vol. 10.2 fl (6.2-12.0); Monocyte# 0.36 X10^3/uL; Monocyte% 4.3 % (0-10); NRBC Flagged by Analyzer 0 % (0-5); Neutrophil # 5.23 X10^3/uL (2.7-7.7); Platelet Count 305 K/mm3 (150-450); RBC Distribution Width CV 12.3 % (11.6-14.6); RBC Distribution Width SD 41.9 fl (35.1-43.9); White Blood Count 8.4 K/mm3 (4.4-11.0)
[2021-04-06 16:48] LABS: Bacteria 0 SEEN /hpf (None Seen); Red Blood Cells-Urine 0 SEEN /hpf (0-5); White Blood Cells 0 SEEN /hpf (0-5)
[2021-04-06 16:58] LABS: Erythrocyte Sedimentation Rate 40 mm/hr (0-30)
[2021-04-06 17:02] LABS: Color, Urine Yellow (Yellow); Nitrite-Dipstick Negative (Negative); Urine Bilirubin Dipstick Negative (Negative); Urine Clarity Sl. Cloudy (Clear); Urine Urobilinogen Normal (Normal)
[2021-04-06 17:04] LABS: Glucose, Dipstick Normal (Normal); Ketone-Dipstick Negative (Negative); Leukocyte Esterase-Dipstick Negative /ul (Negative); Occult Blood-Urine Negative /ul (Negative); Protein-Dipstick Negative (Negative); Specific Gravity, Urine 1.015 (1.002-1.030)
[2021-04-06 17:19] LABS: Amorphous Sediment 3+ URATE; Mucous, Urine RARE /hpf (<or=2+); Squamous Epithelial Cells - UA 0-5 SEEN /hpf (5-10)
[2021-04-06 17:52] VITALS: BP 138/74
== END 2021-04-06 17:52 | disposition home or self-care (01) ==
PROVIDERS: Emergency Provider Emergency Medicine; PCP Nurse Practitioner; Visit Provider Emergency Medicine
DX: G43.719 Chronic migraine without aura, intractable, without status migrainosus (principal); I10 Essential (primary) hypertension; E03.9 Hypothyroidism, unspecified; R20.2 Paresthesia of skin; M15.9 Polyosteoarthritis, unspecified; E66.9 Obesity, unspecified; Z68.39 Body mass index [BMI] 39.0-39.9, adult; Z79.899 Other long term (current) drug therapy; Z87.891 Personal history of nicotine dependence
CPT/HCPCS: 80053; 81001; 84443; 85025; 85652; 99283

== ENCOUNTER 2021-04-23 15:59 | Outpatient (CLI) | payer BC, SELFPAY ==
[2021-04-23 18:04] LABS: Erythrocyte Sedimentation Rate 50 mm/hr (0-30)
[2021-04-23 18:18] LABS: Free T3 2.9 pg/mL (2.18-3.98); Rheumatoid Factor < 10.0 IU/mL (<15); T4 Free Direct 1.25 ng/dL (0.76-1.46); Thyroid Stim Hormone (TSH) 1.09 uIU/mL (0.358-3.74); Uric Acid 4.9 mg/dL (2.6-6.0)
[2021-04-25 15:56] LABS: ANTINUCLEAR ANTIBODIES DIRECT Negative (Negative)
[2021-04-30 20:08] LABS: Lyme IgG P18 Ab Absent (.); Lyme IgG P23 Ab Absent (.); Lyme IgG P28 Ab Absent (.); Lyme IgG P30 Ab Absent (.); Lyme IgG P39 Ab Absent (.); Lyme IgG P41 Ab Absent (.); Lyme IgG P45 Ab Absent (.); Lyme IgG P58 Ab Present (.); Lyme IgG P66 Ab Absent (.); Lyme IgG P93 Ab Absent (.); Lyme IgM P23 Ab Present (.); Lyme IgM P39 Ab Absent (.); Lyme IgM P41 Ab Absent (.)
[2021-05-01 09:22] LABS: CCP IgG Antibodies 16 units (0-19); HLA B27 Negative (.); Lyme IgG WB Interpretation Negative (.); Lyme IgM WB Interpretation Negative (.); Thyroid Peroxidase AB 16 IU/mL (0-34)
== END 2021-04-23 23:59 | disposition home or self-care (01) ==
LOC: MTLAB 16:01
PROVIDERS: PCP Nurse Practitioner; Referring Provider Nurse Practitioner; Visit Provider Nurse Practitioner
DX: M25.40 Effusion, unspecified joint (principal); M25.50 Pain in unspecified joint; E03.9 Hypothyroidism, unspecified
CPT/HCPCS: 36415; 81374; 84439; 84443; 84481; 84550; 85652; 86038; 86140; 86200; 86376; 86431; 86617

== ENCOUNTER → 2021-06-28 | Outpatient (CLI) | payer BC, SELFPAY ==
--- NOTE | 2021-06-28 14:29 | RAD_ITS ---
STUDY: XR Pelvis 1 or 2 Views 06/28/2021 2:34 PM REASON FOR EXAM: Female, 50 years old. INFLAMMATORY POLYARTHROPATHY -- ATTN SAC JOINTS TECHNIQUE: XR Pelvis 1 or 2 Views COMPARISON: None FINDINGS: There is a non-specific bowel gas pattern. Normal visualized soft tissue structures. There are degenerative changes of the lumbar spine. Normal bilateral iliac wings, sacroiliac joints and visualized sacrum. Normal visualized bilateral superior and inferior pubic rami. Normal pubic symphysis. Normal ischial tuberosities. Normal visualized right femoral head. Normal right acetabulum. Normal right hip joint. Normal visualized left femoral head. Normal left acetabulum. Normal left hip joint. RAD/Pelvis 1 or 2 Views IMPRESSION: No acute findings. No evidence for sacroiliitis. Electronically Signed: Jose Wilson MD at 14:48 EDT ,
[2021-06-28 17:46] LABS: Absolute Lymphocyte Count 2.17 X10^3/uL (0.83-4.51); Absolute Neutrophil Count 3.3 X10^3/uL (2.0-7.7); Basophil# 0.04 X10^3/uL; Basophil% 0.7 % (0-1); Eosinophil# 0.07 X10^3/uL; Eosinophils% 1.2 % (0-5); Hematocrit 42.7 % (37-47); Hemoglobin 13.4 g/dL (12.0-15.0); Lymphocyte # 2.17 X10^3/ul (0.83-4.51); Lymphocyte % 36.5 % (19-41); Mean Corp Hgb Conc 31.4 g/dL (32-36); Mean Corpuscular Hgb 29.3 pg (27.0-32.0); Mean Corpuscular Volume 93.2 fL (81-99); Mean Platelet Vol. 10.9 fl (6.2-12.0); Monocyte# 0.36 X10^3/uL; Monocyte% 6.1 % (0-10); NRBC Flagged by Analyzer 0 % (0-5); Neutrophil # 3.29 X10^3/uL (2.7-7.7); Neutrophil % 55.2 % (47-70); Platelet Count 261 K/mm3 (150-450); RBC Distribution Width CV 13.3 % (11.6-14.6); RBC Distribution Width SD 45.3 fl (35.1-43.9); Red Blood Count 4.58 M/mm3 (4.2-5.4)
[2021-06-28 18:43] LABS: ALB/GLOB Ratio 1.1 RATIO (0.9-2.4); AST(SGOT) 32 U/L (15-37); Alanine Aminotransfer ALT/SGPT 62 U/L (13-56); Albumin, Serum 3.7 g/dL (3.2-5.0); Alkaline Phosphatase 92 U/L (45-117); Anion Gap 6 (5-15); BUN 11 mg/dL (7-18); BUN/Creat Ratio 13.6 RATIO (10-20); Chloride 107 mmol/L (98-107); Creatinine, Serum 0.81 mg/dL (0.55-1.02); EST Glomerular Filtration Rate 79 mL/min (>60); Est Glom Filt Rate - Afr Amer 95 mL/min (>60); Globulin 3.5 g/dL (2.2-4.2); Glucose 89 mg/dL (74-106); Potassium 4.1 mmol/L (3.5-5.1); Protein, Total 7.2 g/dL (6.4-8.2); Rheumatoid Factor < 10.0 IU/mL (<15); Sodium Level 142 mmol/L (136-145)
[2021-06-29 10:55] LABS: Hepatitis B Surface Antibody Non-Reactive; Hepatitis B Surface Antigen Non-Reactive (Nonreactive); Hepatitis C Antibody Non-Reactive (Nonreactive)
[2021-06-30 15:47] LABS: ANTINUCLEAR ANTIBODIES DIRECT Negative (Negative)
[2021-07-01 00:07] LABS: QNTFERON TB Mitogen Value > 10.00 IU/mL (.); QNTFERON TB Nil Value 0.01 IU/mL (.); QNTFERON TB1+ Ag Value 0.05 IU/mL (.); QNTFERON TB2+ Ag Value 0.03 IU/mL (.)
[2021-07-01 08:17] LABS: CCP IgG Antibodies 13 units (0-19); QNTIFERON TB Positive Criteria Negative (Negative)
== END | disposition home or self-care (01) ==
PROVIDERS: PCP Nurse Practitioner Family; Referring Provider Internal Medicine Rheumatology; Visit Provider Internal Medicine Rheumatology
DX: M06.4 Inflammatory polyarthropathy (principal); M47.897 Other spondylosis, lumbosacral region; M43.06 Spondylolysis, lumbar region; K76.0 Fatty (change of) liver, not elsewhere classified; I10 Essential (primary) hypertension; F41.9 Anxiety disorder, unspecified; J30.9 Allergic rhinitis, unspecified; G43.909 Migraine, unspecified, not intractable, without status migrainosus; N20.0 Calculus of kidney
CPT/HCPCS: 36415; 72170; 80053; 85025; 86038; 86200; 86431; 86480; 86706; 86803; 87340

== ENCOUNTER 2021-09-27 07:09 | Emergency (ER) | payer BC, SELFPAY ==
[2021-09-27 07:10] VITALS: BP 161/84; PULSE 87; RESP 18; TEMP 35.4; O2SAT 97; BMI 41.1
--- NOTE | 2021-09-27 07:25 | CT_ITS ---
STUDY: CT ABDOMEN AND PELVIS WITHOUT CONTRAST REASON FOR EXAM: Female, 50 years old. Right flank pain. History of kidney stones. RADIATION DOSAGE (If Supplied By Facility): CTDIvol = ( 23.13 ) mGy, DLP = ( 1259.81 ) mGycm TECHNIQUE: Transaxial images were obtained from the dome of the diaphragm to the symphysis pubis without oral contrast, and without intravenous contrast. Sagittal and coronal images were reconstructed. Individualized dose optimization techniques were used for this CT. COMPARISON: Comparison is made with prior study dated 10/28/2020. FINDINGS: The visualized lung bases are unremarkable. The visualized portions of the heart are within normal limits. There is decreased attenuation of the liver consistent with steatosis. There are surgical clips in the gallbladder fossa consistent with a prior cholecystectomy. Normal spleen. Normal pancreas. Normal bilateral adrenal glands. Mild degree of right hydronephrosis due to a 2 mm calculus at the right ureterovesical junction as it enters the urinary bladder. Normal left kidney. There is a small hiatal hernia. Normal small intestine. Normal colon. The appendix is visualized and appears normal. Normal abdominal aorta. Normal inferior vena cava. There is borderline retroperitoneal lymphadenopathy with enlarged nodes no greater than 10mm in the short axis diameter. Normal urinary bladder. Normal abdominal wall. Mild degree of disc space narrowing at the L5-S1 level with spondylosis. Minimal anterior listhesis of L5 on S1 due to spondylolysis of the pars interarticularis of the L5 vertebrae. CT/Abdomen/Pelvis without Cont IMPRESSION: Mild degree of right hydronephrosis due to a 2 mm calculus at the right ureterovesical junction as it enters the urinary bladder. Diffuse fatty infiltration of the liver. Electronically Signed: Brady Rousseau MD at 8:31 EDT ,
--- NOTE | 2021-09-27 07:30 | EDS_ITS ---
HPI History of Present Illness Chief Complaint: Flank Pain Informant: patient Narrative Narrative: 50-year-old female presenting to the emergency department chief complaint of right flank pain. She states that this pain began yesterday but the significant pain began this morning. She does not believe that she has had a fever. She notes 2 weeks of dysuria and urinary frequency. She has been dealing with the in her family and has not been able to seek care yet. When the pain became severe today is when she came to the hospital. She notes 2 prior kidney stones in the past. She is not someone who frequently gets urinary tract infections. [facility] Medical History Allergic rhinitis Hx of migraines Home Medications vitamin B complex 1 ea PO DAILY 06/27/19 [History Last Taken Unknown] ondansetron 4 mg disintegrating tablet 4 mg PO Q8H PRN nausea and vomiting #10 tabs 10/28/20 [Rx Last Taken Unknown] Lactobacillus acidophilus (Acidophilus capsule) 10 mg PO DAILY 11/23/20 [History Last Taken Unknown] cyclobenzaprine 5 mg tablet 5 mg PO DIRECTED 11/23/20 [History Last Taken Unknown] melatonin 5 mg capsule 5 mg PO DAILY PRN Sleep 11/23/20 [History Last Taken Unknown] turmeric 400 mg capsule 400 mg PO DAILY 11/23/20 [History Last Taken Unknown] alprazolam 0.5 mg tablet 0.5 mg PO DAILY 09/27/21 [History Last Taken Unknown] hydroxychloroquine 200 mg DAILY 09/27/21 [History Last Taken Unknown] metoprolol succinate 50 mg tablet,extended release 24 hr 50 mg PO DAILY 09/27/21 [History Last Taken Unknown] venlafaxine 37.5 mg tablet 75 mg PO DAILY 09/27/21 [History Last Taken Unknown] Allergy/AdvReac Type Severity Reaction Status Date / Time No Known Allergies Allergy Verified 09/27/21 08:32 Family History Father Hypertension Heart disease Surgical History History of cholecystectomy Social History household members: significant other housing: house Smoking Status: Former smoker quit date: 04/27/20 pack-years: 8 alcohol intake: current alcohol intake frequency: a few times a month what type of physical activity do you participate in: none do you feel safe at home: Yes ROS ROS ED Constitutional Constitutional ED: Reports sweats; Denies chills, fever(s) or weight loss Eyes Eyes: Denies change in vision or diplopia ENT ENT ED: Denies ear pain, rhinorrhea or sore throat Cardiovascular Cardiovascular: Denies chest pain, orthopnea, palpitations or racing heartbeat Respiratory/Chest Respiratory/Chest: Denies cough, dyspnea or orthopnea Gastrointestinal Gastrointestinal: Reports nausea; Denies abdominal pain, diarrhea or vomiting Genitourinary Genitourinary ED: Reports dysuria and urinary frequency; Denies hematuria Musculoskeletal Musculoskeletal: Reports back pain; Denies arthralgias or myalgias Integumentary Denies abscess or rash Neurologic Neurologic: Denies headache(s) or weakness Psychiatric Psychiatric: Denies anxiety, depression, suicidal ideation or suicidal thoughts Endocrine Endocrinology: Denies polydipsia, polyphagia or polyuria Allergic/Immunologic Allergic/Immunologic ED: Denies mouth swelling, tongue swelling or urticaria EXAM Physical Exam Const Vital Signs: 09/27/21 07:10 09/27/21 07:57 09/27/21 08:28 Temperature 95.8 F L 97.7 F L 97.7 F L Temperature Source Temporal Temporal Oral Pulse Rate 87 69 65 Respiratory Rate 18 18 20 H Blood Pressure 161/84 H 144/90 H 126/80 H Blood Pressure Mean 109 108 95 Pulse Ox 97 98 98 Oxygen Delivery Method Room Air Room Air Room Air 09/27/21 10:25 Temperature Temperature Source Pulse Rate 64 Respiratory Rate 16 Blood Pressure 148/67 H Blood Pressure Mean 94 Pulse Ox 97 Oxygen Delivery Method Room Air Positive well nourished, well developed and obese General Appearance ED: well developed Nutritional Appearance: obese HEENT Reports normocephalic, head/scalp atraumatic and moist mucous membranes Eyes PERRL and EOMs intact bilaterally Neck no lymphadenopathy, supple and no JVD Resp normal respiratory effort and clear to auscultation bilaterally Cardio regular rate, regular rhythm and no murmurs GI normal to inspection, nondistended, normoactive bowel sounds and non-tender Palpation: soft Back/Spine normal ROM General Back: CVA tenderness right Extremity normal to inspection General Extremety ED: Negative for edema General Extremity: Negative for edema Neuro oriented x3 and CN's II-XII intact bilaterally Sensorium / Orientation: alert Motor Exam: strength 5/5 throughout Psych mental status grossly normal Mood & Affect: Negative for depressed or tearful Skin no rashes or lesions noted and no wounds MDM MDM MDM Narrative Medical decision making narrative: Basic blood work showed a white count of 6.2 with a normal creatinine. Urinalysis 5200 red blood cells 4+ bacteria but also 5-10 epithelial cells. Nitrate negative. This was sent for culture. CT demonstrates a distal 2 mm ureteral stone with mild hydronephrosis. Patient received pain and nausea medication as well as IV fluids. To write for her to have Bactrim Zofran and Percocet at home follow-up with urology return if worsening or concerns Lab Data Attestation: I reviewed the patient's lab results. Labs: Laboratory Results - last 24 hr 09/27/21 09/27/21 09/27/21 07:32 07:35 07:35 WBC 6.2 RBC 4.61 Hgb 13.8 Hct 41.4 MCV 89.8 MCH 29.9 MCHC 33.3 RDW Std Deviation 42.0 RDW Coeff of Al 12.8 Plt Count 242 MPV 9.8 Immature Gran % (Auto) 0.300 Neut % (Auto) 48.3 Lymph % (Auto) 42.9 H [place] % (Auto) 6.5 Eos % (Auto) 1.0 Baso % (Auto) 1.0 Absolute Neuts (auto) 3.0 Absolute Lymphs (auto) 2.65 Nucleated RBC % 0 Sodium 140 Potassium 3.5 Chloride 106 Carbon Dioxide 28.0 Anion Gap 6 BUN 13 Creatinine 0.81 Estim Creat Clear Calc 79.01 Est GFR (MDRD) Af Amer 95 Est GFR (MDRD) Non-Af 79 BUN/Creatinine Ratio 16.0 Glucose 117 H Calcium 8.7 Urine Color Yellow Urine Clarity Clear Urine pH 6.0 Ur Specific [place] 1.030 Urine Protein 30 H Urine Glucose (UA) Normal Urine Ketones Negative Urine Occult Blood 250 H Urine Nitrite Negative Urine Bilirubin Negative Urine Urobilinogen Normal Ur Leukocyte Esterase 100 H Urine RBC 50-100 SEEN Urine WBC 0-5 SEEN Ur Squamous Epith Cells 5-10 SEEN Urine Bacteria 4+ Urine Mucus 0 SEEN Radiography Diagnostic Testing: Clinical Impression(s) from Imaging Studies Abdomen/Pelvis CT 09/27/21 07:25 IMPRESSION: Mild degree of right hydronephrosis due to a 2 mm calculus at the right ureterovesical junction as it enters the urinary bladder. Diffuse fatty infiltration of the liver. Electronically Signed: Brady Rousseau MD at 8:31 EDT , Discharge Plan Triage Chief Complaint: Flank Pain ED Provider: Titi Carbajal Dx/Rx/DC Orders Clinical Impression: Vomiting, Ureterolithiasis, Renal colic on right side Instructions: ED Kidney Stone w/ Colic Prescriptions: No Action cyclobenzaprine 5 mg tablet 5 mg PO DIRECTED turmeric 400 mg capsule 400 mg PO DAILY melatonin 5 mg capsule 5 mg PO DAILY PRN (Reason: Sleep) Lactobacillus acidophilus [Acidophilus] Capsule 10 mg PO DAILY vitamin B complex 1 EACH capsule 1 ea PO DAILY ondansetron 4 mg tablet,disintegrating 4 mg PO Q8H PRN (Reason: nausea and vomiting) Qty: 10 0RF metoprolol succinate 50 mg tablet extended release 24 hr 50 mg PO DAILY Label Comments: TAKE 1 TABLET BY MOUTH ONCE DAILY DIRECTED alprazolam 0.5 mg tablet 0.5 mg PO DAILY Label Comments: TAKE 1 TABLET BY MOUTH ONCE DAILY NEEDED FOR ANXIETY venlafaxine 37.5 mg tablet 75 mg PO DAILY Label Comments: TAKE 1 TABLET BY MOUTH ONCE DAILY hydroxychloroquine 200 mg DAILY Primary Care Provider: Sierra Peña Referrals: Barak Faye MD [Med Staff - Active Staff] - As soon as possible (for Urology follow up) Sierra Peña, [employer] [Primary Care Provider] - As Needed
[2021-09-27 07:40] LABS: Absolute Lymphocyte Count 2.65 X10^3/uL (0.83-4.51); Basophil# 0.06 X10^3/uL; Eosinophil# 0.06 X10^3/uL; Hematocrit 41.4 % (37-47); Hemoglobin 13.8 g/dL (12.0-15.0); Lymphocyte # 2.65 X10^3/ul (0.83-4.51); Lymphocyte % 42.9 % (19-41); Mean Corp Hgb Conc 33.3 g/dL (32-36); Mean Corpuscular Hgb 29.9 pg (27.0-32.0); Mean Corpuscular Volume 89.8 fL (81-99); Mean Platelet Vol. 9.8 fl (6.2-12.0); Monocyte% 6.5 % (0-10); NRBC Flagged by Analyzer 0 % (0-5); Neutrophil # 2.98 X10^3/uL (2.7-7.7); Neutrophil % 48.3 % (47-70); Platelet Count 242 K/mm3 (150-450); RBC Distribution Width CV 12.8 % (11.6-14.6); Red Blood Count 4.61 M/mm3 (4.2-5.4); White Blood Count 6.2 K/mm3 (4.4-11.0)
[2021-09-27 07:40] LABS: Mucous, Urine 0 SEEN /hpf (<or=2+)
[2021-09-27 07:42] LABS: Color, Urine Yellow (Yellow); Glucose, Dipstick Normal (Normal); Ketone-Dipstick Negative (Negative); Leukocyte Esterase-Dipstick 100 /ul (Negative); Nitrite-Dipstick Negative (Negative); Occult Blood-Urine 250 /ul (Negative); Protein-Dipstick 30 mg/dl (Negative); Urine Bilirubin Dipstick Negative (Negative); Urine Clarity Clear (Clear); Urine Urobilinogen Normal (Normal)
[2021-09-27] MEDS: Ondansetron 4 MG/2 ML Vial IV ×2 (07:45→08:38)
[2021-09-27] MEDS: 0.9% Normal Saline 1,000 ML 999 ML IV (07:45)
[2021-09-27] MEDS: Ketorolac 30 MG/ML Syringe IV (07:45)
[2021-09-27 07:47] LABS: Red Blood Cells-Urine 50-100 SEEN /hpf (0-5)
[2021-09-27 07:49] LABS: Bacteria 4+ /hpf (None Seen)
[2021-09-27 07:50] LABS: Squamous Epithelial Cells - UA 5-10 SEEN /hpf (5-10); White Blood Cells 0-5 SEEN /hpf (0-5)
[2021-09-27 07:54] LABS: Anion Gap 6 (5-15); BUN 13 mg/dL (7-18); Calcium,Total 8.7 mg/dL (8.5-10.1); Chloride 106 mmol/L (98-107); Creatinine, Serum 0.81 mg/dL (0.55-1.02); EST Glomerular Filtration Rate 79 mL/min (>60); Est Glom Filt Rate - Afr Amer 95 mL/min (>60); Estimated Creatinine Clearance 79.01 ml/min; Glucose 117 mg/dL (74-106); Potassium 3.5 mmol/L (3.5-5.1); Sodium Level 140 mmol/L (136-145)
[2021-09-27 07:57] VITALS: BP 144/90; PULSE 69; RESP 18; TEMP 36.5; O2SAT 98
[2021-09-27 08:28] VITALS: BP 126/80; PULSE 65; RESP 20; TEMP 36.5; O2SAT 98
[2021-09-27] MEDS: Morphine 4 MG/ML Syringe IV ×2 (08:38→09:19)
[2021-09-27 10:25] VITALS: BP 148/67; PULSE 64; RESP 16; O2SAT 97
[2021-09-27 12:08] VITALS: BP 157/90; PULSE 75; RESP 18; TEMP 35.7; O2SAT 97
== END 2021-09-27 12:15 | disposition home or self-care (01) ==
PROVIDERS: Emergency Provider Emergency Medicine; PCP Nurse Practitioner Family; Visit Provider Emergency Medicine
DX: N13.2 Hydronephrosis with renal and ureteral calculous obstruction (principal); R35.0 Frequency of micturition; R11.2 Nausea with vomiting, unspecified; E66.9 Obesity, unspecified; Z79.899 Other long term (current) drug therapy; Z87.442 Personal history of urinary calculi; Z87.891 Personal history of nicotine dependence
CPT/HCPCS: 74176; 80048; 81001; 85025; 87086; 87088; 96361; 96374; 96375; 96376; 99283; J7030; A4216; J2405

== ENCOUNTER → 2021-10-13 | Outpatient (CLI) | payer BC, SELFPAY ==
--- NOTE | 2021-10-13 14:47 | BI_ITS ---
MAMMOGRAPHY - BILATERAL SCREENING REASON FOR EXAM: Female, 50 years old. Routine annual screening examination. PERTINENT HISTORY: Non-contributory. TECHNIQUE: Digital bilateral breast coty (3D mammographic acquisition) in the CC and MLO projections. 2-D mediolateral oblique (MLO) and craniocaudad (CC) views of both breasts were obtained. CAD: Full Field Digital Mammography with Computer Added Detection was performed. COMPARISON: Comparison is made with prior study dated 08/27/2020. FINDINGS: Breast Composition: The breasts are almost entirely fatty. There are no dominant masses or suspicious calcifications. Stable small benign-appearing bilateral axillary lymph nodes. No other significant abnormalities are identified. There has been no significant change since the prior study. BI/SCRN MAMM (CAD)W/COTY BILAT IMPRESSION: Stable bilateral screening mammogram. Yearly follow-up mammogram recommended. (A) ASSESSMENT CATEGORY: BIRADS Category 2: Benign. A letter regarding these results will be sent to the patient by the facility within 30 days. Approximately 10% of breast cancers are not detected by mammography. A normal mammogram should not delay biopsy of a clinically suspicious abnormality. [id number] Electronically Signed: Brady Rousseau MD at 8:26 EDT ,
[2021-10-13 17:52] LABS: Absolute Lymphocyte Count 2.11 X10^3/uL (0.83-4.51); Absolute Neutrophil Count 3.5 X10^3/uL (2.0-7.7); Basophil% 1.6 % (0-1); Eosinophil# 0.07 X10^3/uL; Eosinophils% 1.1 % (0-5); Hematocrit 44.1 % (37-47); Hemoglobin 13.8 g/dL (12.0-15.0); Lymphocyte # 2.11 X10^3/ul (0.83-4.51); Lymphocyte % 33.9 % (19-41); Mean Corp Hgb Conc 31.3 g/dL (32-36); Mean Corpuscular Hgb 29.7 pg (27.0-32.0); Mean Corpuscular Volume 94.8 fL (81-99); Mean Platelet Vol. 10.5 fl (6.2-12.0); Monocyte# 0.45 X10^3/uL; Monocyte% 7.2 % (0-10); NRBC Flagged by Analyzer 0 % (0-5); Neutrophil # 3.47 X10^3/uL (2.7-7.7); Neutrophil % 55.7 % (47-70); Platelet Count 351 K/mm3 (150-450); RBC Distribution Width SD 44.9 fl (35.1-43.9); Red Blood Count 4.65 M/mm3 (4.2-5.4); White Blood Count 6.2 K/mm3 (4.4-11.0)
[2021-10-13 20:06] LABS: AST(SGOT) 31 U/L (15-37); Alanine Aminotransfer ALT/SGPT 50 U/L (13-56); Albumin, Serum 3.8 g/dL (3.2-5.0); Alkaline Phosphatase 88 U/L (45-117); Anion Gap 6 (5-15); BUN 6 mg/dL (7-18); Calcium,Total 8.7 mg/dL (8.5-10.1); Chloride 103 mmol/L (98-107); Creatinine, Serum 0.86 mg/dL (0.55-1.02); EST Glomerular Filtration Rate 74 mL/min (>60); Est Glom Filt Rate - Afr Amer 89 mL/min (>60); Globulin 3.8 g/dL (2.2-4.2); Glucose 94 mg/dL (74-106); Potassium 3.7 mmol/L (3.5-5.1); Protein, Total 7.6 g/dL (6.4-8.2); Sodium Level 140 mmol/L (136-145)
== END | disposition home or self-care (01) ==
PROVIDERS: PCP Nurse Practitioner Family; Referring Provider Internal Medicine Rheumatology; Visit Provider Nurse Practitioner Family
DX: Z12.31 Encounter for screening mammogram for malignant neoplasm of breast (principal); M06.4 Inflammatory polyarthropathy; M47.897 Other spondylosis, lumbosacral region; M43.06 Spondylolysis, lumbar region; K76.0 Fatty (change of) liver, not elsewhere classified; I10 Essential (primary) hypertension; F41.9 Anxiety disorder, unspecified; J30.9 Allergic rhinitis, unspecified; G43.909 Migraine, unspecified, not intractable, without status migrainosus; N20.0 Calculus of kidney
CPT/HCPCS: 36415; 77063; 77067; 80053; 85025

== ENCOUNTER → 2021-11-17 | Outpatient (CLI) | payer BC, SELFPAY ==
[2021-11-17 17:25] LABS: Absolute Lymphocyte Count 1.97 X10^3/uL (0.83-4.51); Absolute Neutrophil Count 3.6 X10^3/uL (2.0-7.7); Basophil# 0.02 X10^3/uL; Basophil% 0.3 % (0-1); Eosinophil# 0.05 X10^3/uL; Eosinophils% 0.8 % (0-5); Hematocrit 41.1 % (37-47); Hemoglobin 13.2 g/dL (12.0-15.0); Lymphocyte # 1.97 X10^3/ul (0.83-4.51); Lymphocyte % 32.4 % (19-41); Mean Corp Hgb Conc 32.1 g/dL (32-36); Mean Corpuscular Volume 93.4 fL (81-99); Monocyte# 0.44 X10^3/uL; Monocyte% 7.2 % (0-10); NRBC Flagged by Analyzer 0 % (0-5); Neutrophil # 3.58 X10^3/uL (2.7-7.7); Platelet Count 298 K/mm3 (150-450); RBC Distribution Width CV 12.8 % (11.6-14.6); RBC Distribution Width SD 43.8 fl (35.1-43.9); White Blood Count 6.1 K/mm3 (4.4-11.0)
[2021-11-17 18:32] LABS: Estradiol 26.3 pg/mL; Follicle Stimulating Hormone 50.2 mIU/mL; Luteinizing Hormone 16.4 mIU/mL; T4 Free Direct 0.89 ng/dL (0.76-1.46); Thyroid Stim Hormone (TSH) 3.04 uIU/mL (0.358-3.74)
[2021-11-29 13:07] LABS: Testosterone, Free 0.09 ng/dL (0.10-0.85); Testosterone, Total 5 ng/dL (4-50)
[2021-11-29 17:19] LABS: Testosterone, % Free 1.71 % (0.50-2.80)
== END | disposition home or self-care (01) ==
LOC: WOBLAB 16:26
PROVIDERS: PCP Nurse Practitioner Family; Visit Provider Obstetrics & Gynecology
DX: N95.1 Menopausal and female climacteric states (principal)
CPT/HCPCS: 36415; 82670; 83001; 83002; 84402; 84403; 84439; 84443; 85025

== ENCOUNTER 2022-02-27 06:51 | Emergency (ER) | payer BC, SELFPAY ==
[2022-02-27 06:55] VITALS: BP 137/84; PULSE 81; RESP 15; TEMP 35.7; O2SAT 97; BMI 42.0
--- NOTE | 2022-02-27 07:15 | ED.VIS.GI ---
HPI HPI - GI History of Present Illness Chief Complaint: Abd Pain Narrative Narrative: 51-year-old female presenting with diffuse crampy abdominal pain, nausea, vomiting, diarrhea. This has been intermittent since [place] time. She reports some days are better than others. She states she does not have a history of IBS, UC, Crohn's. She does not report a fever but some days she is hot and cold. No black or bloody stools or emesis. Patient does have Zofran leftover from previous prescription which does help at times. She also states that sometimes he gets epigastric pain and uses Tums and this helps to some degree but not all the way. The pain seems to move around her abdomen. Patient denies exotic travel, drinking from [place] or [place], recent antibiotics. Nobody else in her house is sick. Last colonoscopy was a year ago and that was her second one which was normal. Patient does report that periodically for the last 4 years she does put 3 there are eggs in her coffee. She states is for protein. She states she is never had a problem with this. [facility] Medical History Allergic rhinitis Contact with and (suspected) exposure to other viral communicable diseases Hx of migraines Kidney stone Home Medications vitamin B complex 1 ea PO DAILY 06/27/19 [History Last Taken Unknown] ondansetron 4 mg disintegrating tablet 4 mg PO Q8H PRN nausea and vomiting #10 tabs 10/28/20 [Rx Last Taken Unknown] Lactobacillus acidophilus (Acidophilus capsule) 10 mg PO DAILY 11/23/20 [History Last Taken Unknown] cyclobenzaprine 5 mg tablet 5 mg PO DIRECTED 11/23/20 [History Last Taken Unknown] melatonin 5 mg capsule 5 mg PO DAILY PRN Sleep 11/23/20 [History Last Taken Unknown] turmeric 400 mg capsule 400 mg PO DAILY 11/23/20 [History Last Taken Unknown] alprazolam 0.5 mg tablet 1 mg PO DAILY PRN Anxiety 09/27/21 [History Last Taken Unknown] fluconazole 150 mg tablet (Diflucan) 150 mg PO Q3D 2 doses #2 tabs 09/27/21 [Rx Last Taken Unknown] hydroxychloroquine 200 mg DAILY 09/27/21 [History Last Taken Unknown] metoprolol succinate 50 mg tablet,extended release 24 hr 50 mg PO DAILY 09/27/21 [History Last Taken Unknown] ondansetron 4 mg disintegrating tablet 4 mg PO Q6H PRN PRN Nausea #20 tabs 09/27/21 [Rx Last Taken Unknown] oxycodone-acetaminophen 5 mg-325 mg tablet 1 tab PO Q6H PRN PRN pain 5 days #20 TABLETS 09/27/21 [Rx Last Taken Unknown] sulfamethoxazole 800 mg-trimethoprim 160 mg tablet 1 tab PO BID #10 TABLETS 09/27/21 [Rx Last Taken Unknown] venlafaxine 37.5 mg tablet 75 mg PO DAILY 09/27/21 [History Last Taken Unknown] benzonatate 200 mg capsule 200 mg PO TID PRN cough #20 caps 12/01/21 [Rx Last Taken Unknown] methylprednisolone 4 mg tablets in a dose pack (Medrol (Breezy)) See Rx Instructions PO PER PKG DIR #21 tabs 12/01/21 [Rx Last Taken Unknown] cephalexin 500 mg capsule 500 mg PO Q12 3 days #6 caps 02/27/22 [Rx Last Taken Unknown] ondansetron 4 mg disintegrating tablet 4 mg PO Q8H PRN nausea and vomiting #14 tabs 02/27/22 [Rx Last Taken Unknown] Allergy/AdvReac Type Severity Reaction Status Date / Time No Known Allergies Allergy Verified 02/27/22 06:58 Family History Father Hypertension Heart disease Surgical History History of cholecystectomy Social History household members: significant other housing: house Smoking Status: Former smoker quit date: 04/27/20 pack-years: 8 alcohol intake: current alcohol intake frequency: a few times a month what type of physical activity do you participate in: none do you feel safe at home: Yes ROS ROS ED Constitutional Constitutional ED: Denies chills or fever(s) ENT ENT ED: Denies rhinorrhea or sore throat Cardiovascular Cardiovascular: Denies chest pain or palpitations Respiratory/Chest Respiratory/Chest: Denies cough or dyspnea Gastrointestinal Gastrointestinal: Reports abdominal pain, diarrhea, nausea and vomiting Genitourinary Genitourinary ED: Denies dysuria or hematuria Musculoskeletal Musculoskeletal: Denies arthralgias or back pain Integumentary Denies abscess or Abrasions Neurologic Neurologic: Denies headache(s) or paresthesias Psychiatric Psychiatric: Denies anxiety or depression Endocrine Endocrinology: Denies polydipsia or polyphagia EXAM Physical Exam Const Vital Signs: 02/27/22 06:55 Temperature 96.2 F L Temperature Source Temporal Pulse Rate 81 Respiratory Rate 15 Blood Pressure 137/84 H Blood Pressure Mean 101 Pulse Ox 97 Oxygen Delivery Method Room Air Positive well nourished General Appearance ED: NAD; Negative for pallor HEENT Reports moist mucous membranes atraumatic Eyes PERRL and EOMs intact bilaterally General Eye ED: Negative for pale conjunctiva or scleral icterus Neck no lymphadenopathy and supple Resp normal respiratory effort Effort and Inspection: Negative for respiratory distress Cardio regular rate and regular rhythm Neuro CN's II-XII intact bilaterally Sensorium / Orientation: alert Motor Exam: strength 5/5 throughout Psych mental status grossly normal and thought process normal Skin no wounds General Skin Exam: Negative for jaundice or pallor MDM MDM MDM Narrative Medical decision making narrative: Patient presenting with diffuse crampy abdominal pain, nausea, vomiting, diarrhea. This is all intermittent since [place]. She has not had a fever. She has no sick contacts. Nobody else in her household is having similar symptoms. No black or bloody stools. No exotic travel, recent antibiotics. Patient does report that she drinks 3 real eggs in her coffee periodically. This has been for the last 4 years. She is never had an issue with this. She states her stools are sometimes watery and she had 3 loose stools today before coming to the ER. She states her often times not watery as well. Differential diagnosis is very broad as nausea, vomiting, diarrhea is fairly nonspecific. Viral etiology, bacterial etiology, parasitic etiology,IBS, UTI are the most likely. C. difficile is less likely given the patient has not been on antibiotics, has not had any fever, and has no history. Obtain a CBC for white count differential and this is essentially normal. No evidence of leukocytosis, anemia, platelet abnormalities. CMP to assess for liver function, renal function, electrolytes, glucose and anion gap. This is also within normal limits. Lipase was also assessed due to periodic epigastric discomfort and this is normal. Urinalysis was obtained due to patient's history of UTIs as well as the nausea and vomiting and this shows positive nitrites, 500 leukocyte esterase, 0-5 white blood cells, rare bacteria. With patient's history she will be covered with Keflex for this. I did try obtain a stool study here today but the patient was unable to have a bowel movement to give a sample. I explained to them that based on the blood work and the fact that she is not having active diarrhea is reassuring. Patient has seen Dr. Lee in the past for colonoscopy I recommended follow-up with GI. At this point I feel she stable for discharge. Impression: 1. Abdominal pain 2. Nausea/vomiting 3. Diarrhea 4. UTI Lab Data Attestation: I reviewed the patient's lab results. Labs: Laboratory Results - last 24 hr 02/27/22 02/27/22 02/27/22 07:40 07:40 09:10 WBC 7.4 RBC 4.37 Hgb 13.2 Hct 41.3 MCV 94.5 MCH 30.2 MCHC 32.0 RDW Std Deviation 43.6 RDW Coeff of Al 12.6 Plt Count 234 MPV 10.0 Immature Gran % (Auto) 0.400 Neut % (Auto) 54.5 Lymph % (Auto) 34.2 Rich % (Auto) 8.7 Eos % (Auto) 1.4 Baso % (Auto) 0.8 Absolute Neuts (auto) 4.0 Absolute Lymphs (auto) 2.52 Nucleated RBC % 0 Sodium 141 Potassium 4.0 Chloride 106 Carbon Dioxide 31.0 Anion Gap 4 L BUN 17 Creatinine 0.90 Estim Creat Clear Calc 70.30 Est GFR (MDRD) Af Amer 85 Est GFR (MDRD) Non-Af 70 BUN/Creatinine Ratio 19.0 Glucose 95 Calcium 8.9 Total Bilirubin 0.20 AST 19 ALT 36 Alkaline Phosphatase 101 Total Protein 6.7 Albumin 3.4 Globulin 3.3 Albumin/Globulin Ratio 1.0 Lipase 158 Urine Color Yellow Urine Clarity Sl. Cloudy Urine pH 7.0 Ur Specific [place] 1.015 Urine Protein 30 H Urine Glucose (UA) Normal Urine Ketones Negative Urine Occult Blood Negative Urine Nitrite Positive H Urine Bilirubin Negative Urine Urobilinogen 1 H Ur Leukocyte Esterase 500 H Urine RBC 0 SEEN Urine WBC 0-5 SEEN Ur Squamous Epith Cells 0-5 SEEN Calcium Oxalate Crystal RARE Urine Bacteria RARE Urine Mucus 0 SEEN Discharge Plan Triage Chief Complaint: Abd Pain ED Provider: Alton Abrams Dx/Rx/DC Orders Instructions: ED Gastroenteritis, Noninfectious Prescriptions: New cephalexin 500 mg capsule 500 mg PO Q12 3 Days Qty: 6 0RF ondansetron 4 mg tablet,disintegrating 4 mg PO Q8H PRN (Reason: nausea and vomiting) Qty: 14 0RF No Action cyclobenzaprine 5 mg tablet 5 mg PO DIRECTED turmeric 400 mg capsule 400 mg PO DAILY melatonin 5 mg capsule 5 mg PO DAILY PRN (Reason: Sleep) Lactobacillus acidophilus [Acidophilus] Capsule 10 mg PO DAILY methylprednisolone [Medrol (Breezy)] 4 mg tablets,dose pack See Rx Instructions PO PER PKG DIR Qty: 21 0RF Rx Instructions: PO PER PKG DIR benzonatate 200 mg capsule 200 mg PO TID PRN (Reason: cough) Qty: 20 0RF vitamin B complex 1 EACH capsule 1 ea PO DAILY ondansetron 4 mg tablet,disintegrating 4 mg PO Q8H PRN (Reason: nausea and vomiting) Qty: 10 0RF metoprolol succinate 50 mg tablet extended release 24 hr 50 mg PO DAILY Label Comments: TAKE 1 TABLET BY MOUTH ONCE DAILY DIRECTED alprazolam 0.5 mg tablet 1 mg PO DAILY PRN (Reason: Anxiety) Label Comments: TAKE 1 TABLET BY MOUTH ONCE DAILY NEEDED FOR ANXIETY venlafaxine 37.5 mg tablet 75 mg PO DAILY Label Comments: TAKE 1 TABLET BY MOUTH ONCE DAILY hydroxychloroquine 200 mg DAILY fluconazole [Diflucan] 150 mg tablet 150 mg PO Q3D Qty: 2 0RF oxycodone-acetaminophen [oxycodone-acetaminophen] 5-325 mg tablet 1 tab PO Q6H PRN PRN (Reason: pain) 5 Days Qty: 20 0RF ondansetron [ondansetron] 4 mg tablet,disintegrating 4 mg PO Q6H PRN PRN (Reason: Nausea) Qty: 20 0RF sulfamethoxazole-trimethoprim [sulfamethoxazole-trimethoprim] 800-160 mg tablet 1 tab PO BID Qty: 10 0RF Primary Care Provider: Sierra Peña Referrals: Nirav Lee MD [Non-Staff] - 3-5 Days Sierra Peña NP-C [Primary Care Provider] - Disposition Disposition: Home, Self Care
[2022-02-27] MEDS: Ondansetron 4 MG/2 ML Vial IV (07:45)
[2022-02-27 07:50] LABS: Absolute Lymphocyte Count 2.52 X10^3/uL (0.83-4.51); Basophil# 0.06 X10^3/uL; Basophil% 0.8 % (0-1); Eosinophils% 1.4 % (0-5); Hematocrit 41.3 % (37-47); Hemoglobin 13.2 g/dL (12.0-15.0); Lymphocyte # 2.52 X10^3/ul (0.83-4.51); Lymphocyte % 34.2 % (19-41); Mean Corpuscular Hgb 30.2 pg (27.0-32.0); Mean Corpuscular Volume 94.5 fL (81-99); Monocyte# 0.64 X10^3/uL; Monocyte% 8.7 % (0-10); NRBC Flagged by Analyzer 0 % (0-5); Neutrophil # 4.02 X10^3/uL (2.7-7.7); Neutrophil % 54.5 % (47-70); Platelet Count 234 K/mm3 (150-450); RBC Distribution Width CV 12.6 % (11.6-14.6); RBC Distribution Width SD 43.6 fl (35.1-43.9); Red Blood Count 4.37 M/mm3 (4.2-5.4); White Blood Count 7.4 K/mm3 (4.4-11.0)
[2022-02-27 08:04] LABS: AST(SGOT) 19 U/L (15-37); Alanine Aminotransfer ALT/SGPT 36 U/L (13-56); Albumin, Serum 3.4 g/dL (3.2-5.0); Alkaline Phosphatase 101 U/L (45-117); Anion Gap 4 (5-15); BUN 17 mg/dL (7-18); Calcium,Total 8.9 mg/dL (8.5-10.1); Chloride 106 mmol/L (98-107); EST Glomerular Filtration Rate 70 mL/min (>60); Est Glom Filt Rate - Afr Amer 85 mL/min (>60); Globulin 3.3 g/dL (2.2-4.2); Glucose 95 mg/dL (74-106); Lipase 158 U/L (73-393); Protein, Total 6.7 g/dL (6.4-8.2); Sodium Level 141 mmol/L (136-145)
[2022-02-27 09:17] LABS: Color, Urine Yellow (Yellow); Glucose, Dipstick Normal (Normal); Ketone-Dipstick Negative (Negative); Leukocyte Esterase-Dipstick 500 /ul (Negative); Mucous, Urine 0 SEEN /hpf (<or=2+); Nitrite-Dipstick Positive (Negative); Occult Blood-Urine Negative /ul (Negative); Protein-Dipstick 30 mg/dl (Negative); Specific Gravity, Urine 1.015 (1.002-1.030); Urine Bilirubin Dipstick Negative (Negative); Urine Clarity Sl. Cloudy (Clear); Urine Urobilinogen 1 mg/dl (Normal)
[2022-02-27 09:24] LABS: Bacteria RARE /hpf (None Seen); Squamous Epithelial Cells - UA 0-5 SEEN /hpf (5-10)
[2022-02-27 09:25] LABS: Calcium Oxalate Crystals Ur RARE /hpf (<or=2+); Red Blood Cells-Urine 0 SEEN /hpf (0-5); White Blood Cells 0-5 SEEN /hpf (0-5)
[2022-02-27] MEDS: Cephalexin 250 MG Capsule 500 MG PO (09:55)
[2022-02-27 10:01] VITALS: BP 138/87; PULSE 85; RESP 18; O2SAT 98
== END 2022-02-27 10:03 | disposition home or self-care (01) ==
PROVIDERS: Emergency Provider Student in an Organized Health Care Education/Training Program; PCP Nurse Practitioner Family; Visit Provider Student in an Organized Health Care Education/Training Program
DX: N39.0 Urinary tract infection, site not specified (principal); R11.2 Nausea with vomiting, unspecified; R19.7 Diarrhea, unspecified; R10.13 Epigastric pain; Z87.891 Personal history of nicotine dependence
CPT/HCPCS: 80053; 81001; 83690; 85025; 96374; 99283; J2405

== ENCOUNTER → 2022-03-04 | Outpatient (CLI) | payer BC, SELFPAY ==
[2022-03-04 17:37] LABS: Absolute Lymphocyte Count 2.39 X10^3/uL (0.83-4.51); Absolute Neutrophil Count 5.6 X10^3/uL (2.0-7.7); Basophil# 0.04 X10^3/uL; Basophil% 0.5 % (0-1); Eosinophil# 0.09 X10^3/uL; Hematocrit 42.8 % (37-47); Hemoglobin 14.1 g/dL (12.0-15.0); Lymphocyte # 2.39 X10^3/ul (0.83-4.51); Lymphocyte % 27.7 % (19-41); Mean Corp Hgb Conc 32.9 g/dL (32-36); Mean Corpuscular Hgb 30.2 pg (27.0-32.0); Mean Corpuscular Volume 91.6 fL (81-99); Monocyte# 0.48 X10^3/uL; Monocyte% 5.6 % (0-10); NRBC Flagged by Analyzer 0 % (0-5); Neutrophil % 64.7 % (47-70); Platelet Count 281 K/mm3 (150-450); RBC Distribution Width CV 12.8 % (11.6-14.6); RBC Distribution Width SD 42.1 fl (35.1-43.9); Red Blood Count 4.67 M/mm3 (4.2-5.4); White Blood Count 8.6 K/mm3 (4.4-11.0)
[2022-03-04 18:15] LABS: ALB/GLOB Ratio 0.9 RATIO (0.9-2.4); AST(SGOT) 29 U/L (15-37); Alanine Aminotransfer ALT/SGPT 42 U/L (13-56); Albumin, Serum 3.6 g/dL (3.2-5.0); Alkaline Phosphatase 107 U/L (45-117); Anion Gap 9 (5-15); BUN 10 mg/dL (7-18); BUN/Creat Ratio 12.5 RATIO (10-20); Calcium,Total 8.8 mg/dL (8.5-10.1); Chloride 106 mmol/L (98-107); EST Glomerular Filtration Rate 80 mL/min (>60); Est Glom Filt Rate - Afr Amer 96 mL/min (>60); Globulin 3.8 g/dL (2.2-4.2); Glucose 101 mg/dL (74-106); Potassium 3.8 mmol/L (3.5-5.1); Protein, Total 7.4 g/dL (6.4-8.2); Sodium Level 140 mmol/L (136-145)
== END | disposition home or self-care (01) ==
LOC: MTLAB 15:54
PROVIDERS: PCP Nurse Practitioner Family; Referring Provider Internal Medicine Rheumatology; Visit Provider Internal Medicine Rheumatology
DX: M06.4 Inflammatory polyarthropathy (principal); M47.897 Other spondylosis, lumbosacral region; M43.06 Spondylolysis, lumbar region; K76.0 Fatty (change of) liver, not elsewhere classified; I10 Essential (primary) hypertension; F41.9 Anxiety disorder, unspecified; J30.9 Allergic rhinitis, unspecified; G43.909 Migraine, unspecified, not intractable, without status migrainosus; N20.0 Calculus of kidney; Z79.899 Other long term (current) drug therapy
CPT/HCPCS: 36415; 80053; 85025

== ENCOUNTER 2022-03-23 06:21 | Emergency (ER) | payer BC, SELFPAY ==
[2022-03-23 06:23] VITALS: BP 130/65; PULSE 70; RESP 15; TEMP 36.6; O2SAT 95; BMI 42.1
--- NOTE | 2022-03-23 07:08 | RAD_ITS ---
EXAM: XR LEFT ANKLE COMPLETE, 3 OR MORE VIEWS CLINICAL INDICATION: pain pain. No injury. Pain on top of the foot and base of the big toe. TECHNIQUE: Frontal, lateral and oblique views of the left ankle. This report was created using [employer] report generation technology. COMPARISON: None. FINDINGS: BONES/JOINTS: There is a plantar calcaneal spur and there is a posterior calcaneal enthesophyte at the insertion site of the Achilles'' tendon. No acute fracture. No subluxation. Normal alignment. Preservation of the joint space. No sclerotic or destructive changes observed. SOFT TISSUES: Unremarkable. No soft tissue swelling or gas. No radiopaque foreign body. RAD/Ankle min 3 Views IMPRESSION: No demonstrated fracture, dislocation, or destructive osseous lesion. Electronically Signed: Jack Dow MD at 7:24 EST Reading Location ID and State: [facility] / [place] , Service support ,
--- NOTE | 2022-03-23 07:08 | RAD_ITS ---
EXAM: XR LEFT FOOT COMPLETE, 3 OR MORE VIEWS CLINICAL INDICATION: pain pain. No injury. Pain across the top of the foot and the base of the big toe. TECHNIQUE: Frontal, lateral and oblique views of the left foot. This report was created using [employer] report generation technology. COMPARISON: X-ray ankle. FINDINGS: BONES/JOINTS: There is a plantar calcaneal spur and there is a posterior calcaneal enthesophyte at the insertion site of the Achilles'' tendon. There is mild degenerative arthrosis of the first metatarsophalangeal joint. No acute fracture. No subluxation. Normal alignment. No sclerotic or destructive changes observed. SOFT TISSUES: There is nonspecific soft tissue swelling. No radiopaque foreign body. RAD/Foot min 3 Views IMPRESSION: No demonstrated fracture, dislocation, or destructive osseous lesion. Electronically Signed: Jack Dow MD at 7:26 EST Reading Location ID and State: [facility] / [place] , Service support ,
[2022-03-23] MEDS: Ketorolac 30 MG/ML Syringe IM (07:28)
--- NOTE | 2022-03-23 07:33 | EDS_ITS ---
HPI History of Present Illness Chief Complaint: Lower Extremity Injury Narrative Narrative: Patient is a 51-year-old female with past medical history of lumbar degenerative disc disease. She states that over the past few weeks she has rolled her left ankle multiple times and has dropped objects on it while at work. She states there was no one trauma recently that caused sudden onset severe pain but she has noticed that she has had increased swelling and some bruising to the foot an d ankle which is making it difficult to ambulate. Secondary to the increased pain in the repetitive trauma she has concern for underlying fracture so she presents for evaluation. [facility] Medical History Allergic rhinitis Contact with and (suspected) exposure to other viral communicable diseases Hx of migraines Kidney stone Home Medications vitamin B complex 1 ea PO DAILY 06/27/19 [History Last Taken Unknown] ondansetron 4 mg disintegrating tablet 4 mg PO Q8H PRN nausea and vomiting #10 tabs 10/28/20 [Rx Last Taken Unknown] Lactobacillus acidophilus (Acidophilus capsule) 10 mg PO DAILY 11/23/20 [History Last Taken Unknown] cyclobenzaprine 5 mg tablet 5 mg PO DIRECTED 11/23/20 [History Last Taken Unknown] melatonin 5 mg capsule 5 mg PO DAILY PRN Sleep 11/23/20 [History Last Taken Unknown] turmeric 400 mg capsule 400 mg PO DAILY 11/23/20 [History Last Taken Unknown] alprazolam 0.5 mg tablet 1 mg PO DAILY PRN Anxiety 09/27/21 [History Last Taken Unknown] fluconazole 150 mg tablet (Diflucan) 150 mg PO Q3D 2 doses #2 tabs 09/27/21 [Rx Last Taken Unknown] hydroxychloroquine 200 mg DAILY 09/27/21 [History Last Taken Unknown] metoprolol succinate 50 mg tablet,extended release 24 hr 50 mg PO DAILY 09/27/21 [History Last Taken Unknown] ondansetron 4 mg disintegrating tablet 4 mg PO Q6H PRN PRN Nausea #20 tabs 09/27/21 [Rx Last Taken Unknown] oxycodone-acetaminophen 5 mg-325 mg tablet 1 tab PO Q6H PRN PRN pain 5 days #20 TABLETS 09/27/21 [Rx Last Taken Unknown] sulfamethoxazole 800 mg-trimethoprim 160 mg tablet 1 tab PO BID #10 TABLETS 09/27/21 [Rx Last Taken Unknown] venlafaxine 37.5 mg tablet 75 mg PO DAILY 09/27/21 [History Last Taken Unknown] benzonatate 200 mg capsule 200 mg PO TID PRN cough #20 caps 12/01/21 [Rx Last Taken Unknown] methylprednisolone 4 mg tablets in a dose pack (Medrol (Breezy)) See Rx Instructions PO PER PKG DIR #21 tabs 12/01/21 [Rx Last Taken Unknown] cephalexin 500 mg capsule 500 mg PO Q12 3 days #6 caps 02/27/22 [Rx Last Taken Unknown] ondansetron 4 mg disintegrating tablet 4 mg PO Q8H PRN nausea and vomiting #14 tabs 02/27/22 [Rx Last Taken Unknown] oxycodone-acetaminophen 5 mg-325 mg tablet (Endocet) 1 tab PO Q6H PRN pain 3 days #12 tabs 03/23/22 [Rx Last Taken Unknown] Allergy/AdvReac Type Severity Reaction Status Date / Time No Known Allergies Allergy Verified 02/27/22 06:58 Family History Father Hypertension Heart disease Surgical History History of cholecystectomy Social History household members: significant other housing: house Smoking Status: Former smoker quit date: 04/27/20 pack-years: 8 alcohol intake: current alcohol intake frequency: a few times a month what type of physical activity do you participate in: none do you feel safe at home: Yes ROS ROS ED Constitutional Constitutional ED: Denies chills or fever(s) ENT ENT ED: Denies sore throat Cardiovascular Cardiovascular: Denies chest pain Respiratory/Chest Respiratory/Chest: Denies cough or dyspnea Gastrointestinal Gastrointestinal: Denies abdominal pain, diarrhea, nausea or vomiting Genitourinary Genitourinary ED: Denies dysuria Musculoskeletal Musculoskeletal: Reports other Details: Positive left foot/ankle pain Integumentary Denies Abrasions or rash Neurologic Neurologic: Denies headache(s) or paresthesias Hematologic/Lymphatic Hematologic/Lymphatic: Denies easy bleeding or easy bruising EXAM Physical Exam Const Vital Signs: 03/23/22 06:23 Temperature 97.9 F Temperature Source Oral Pulse Rate 70 Respiratory Rate 15 Blood Pressure 130/65 H Blood Pressure Mean 86 Pulse Ox 95 Oxygen Delivery Method Room Air Positive well nourished, well developed and obese General Appearance ED: well developed Nutritional Appearance: obese Eyes PERRL and EOMs intact bilaterally Neck supple Resp normal respiratory effort and clear to auscultation bilaterally Cardio regular rate and regular rhythm Extremity Extremity Narrative: Left lower extremity is neurovascular intact. There is mild soft tissue swelling with faint ecchymosis to the dorsal aspect of the left midfoot that extends towards the lateral malleolus. There is no obvious bony deformity or joint effusion. Achilles tendon is intact and ankle ligaments are stable. There is mild diffuse pain with palpation. There is no pain on palpation of the proximal tibia. Remainder the exam is normal Neuro oriented x3, CN's II-XII intact bilaterally and no sensory deficits noted Sensorium / Orientation: alert Psych mental status grossly normal Skin no rashes or lesions noted Skin Narrative: Capillary refills less than 3 seconds MDM MDM MDM Narrative Medical decision making narrative: Patient presented to the ER with stable vitals and reported multiple injuries to the same ankle/foot. By exam she has mild soft tissue swelling and ecchymosis concerning for underlying fracture. As her ankle ligaments do not feel loose I doubt she has a ligamentous tear or Achilles tendon tear. Also with no signs of overlying erythema or warmth cellulitis or abscess is low in the differential. Therefore at this time I felt only need for x-rays of the foot and ankle. These revealed no acute fractures or dislocation. Therefore I feel patient has repetitive foot and ankle sprains from the injuries suffered over the past few weeks and she will be given a walking boot to stabilize this and otherwise is safe for discharge. Radiography Diagnostic Testing: Clinical Impression(s) from Imaging Studies Ankle X-Ray 03/23/22 07:08 IMPRESSION: No demonstrated fracture, dislocation, or destructive osseous lesion. Electronically Signed: Jack Dow MD at 7:24 EST Reading Location ID and State: [facility] / [place] , Service support , Foot X-Ray 03/23/22 07:08 IMPRESSION: No demonstrated fracture, dislocation, or destructive osseous lesion. Electronically Signed: Jack Dow MD at 7:26 EST , X-ray of the left foot and ankle as interpreted by the emergency medicine physician reveals no acute fracture dislocation or foreign body Discharge Plan Triage Chief Complaint: Lower Extremity Injury ED Provider: Daren Ghosh Dx/Rx/DC Orders Clinical Impression: Left ankle sprain, Sprain of foot, left Instructions: ED Foot Sprain, ED Ankle Sprain (Adult) Prescriptions: New oxycodone-acetaminophen [Endocet] 5-325 mg tablet 1 tab PO Q6H PRN (Reason: pain) 3 Days Qty: 12 0RF No Action cyclobenzaprine 5 mg tablet 5 mg PO DIRECTED turmeric 400 mg capsule 400 mg PO DAILY melatonin 5 mg capsule 5 mg PO DAILY PRN (Reason: Sleep) Lactobacillus acidophilus [Acidophilus] Capsule 10 mg PO DAILY methylprednisolone [Medrol (Breezy)] 4 mg tablets,dose pack See Rx Instructions PO PER PKG DIR Qty: 21 0RF Rx Instructions: PO PER PKG DIR benzonatate 200 mg capsule 200 mg PO TID PRN (Reason: cough) Qty: 20 0RF vitamin B complex 1 EACH capsule 1 ea PO DAILY ondansetron 4 mg tablet,disintegrating 4 mg PO Q8H PRN (Reason: nausea and vomiting) Qty: 10 0RF metoprolol succinate 50 mg tablet extended release 24 hr 50 mg PO DAILY Label Comments: TAKE 1 TABLET BY MOUTH ONCE DAILY DIRECTED alprazolam 0.5 mg tablet 1 mg PO DAILY PRN (Reason: Anxiety) Label Comments: TAKE 1 TABLET BY MOUTH ONCE DAILY NEEDED FOR ANXIETY venlafaxine 37.5 mg tablet 75 mg PO DAILY Label Comments: TAKE 1 TABLET BY MOUTH ONCE DAILY hydroxychloroquine 200 mg DAILY fluconazole [Diflucan] 150 mg tablet 150 mg PO Q3D Qty: 2 0RF oxycodone-acetaminophen [oxycodone-acetaminophen] 5-325 mg tablet 1 tab PO Q6H PRN PRN (Reason: pain) 5 Days Qty: 20 0RF ondansetron [ondansetron] 4 mg tablet,disintegrating 4 mg PO Q6H PRN PRN (Reason: Nausea) Qty: 20 0RF sulfamethoxazole-trimethoprim [sulfamethoxazole-trimethoprim] 800-160 mg tablet 1 tab PO BID Qty: 10 0RF cephalexin 500 mg capsule 500 mg PO Q12 3 Days Qty: 6 0RF ondansetron 4 mg tablet,disintegrating 4 mg PO Q8H PRN (Reason: nausea and vomiting) Qty: 14 0RF Stand Alone Forms: ED Work / School Excuse Primary Care Provider: Sierra Peña Referrals: Sierra Peña, [employer] [Primary Care Provider] - Activity Restrictions/Additional Instructions: Your x-rays revealed no acute fracture or dislocation. Wear your walking boot for stabilization of your ankle and foot and if there is no improvement after 1 to 2 weeks return to the ER or see your family doctor for repeat evaluation. Disposition Disposition: Home, Self Care
== END 2022-03-23 09:18 | disposition home or self-care (01) ==
PROVIDERS: Emergency Provider Emergency Medicine; PCP Nurse Practitioner Family; Visit Provider Emergency Medicine
DX: S93.402A Sprain of unspecified ligament of left ankle, initial encounter (principal); Z87.891 Personal history of nicotine dependence; X58.XXXA Exposure to other specified factors, initial encounter
CPT/HCPCS: 73610; 73630; 96372; 99282

== ENCOUNTER → 2022-06-01 | Outpatient (CLI) | payer BC, SELFPAY ==
[2022-06-01 18:23] LABS: Absolute Lymphocyte Count 2.22 X10^3/uL (0.83-4.51); Absolute Neutrophil Count 4.6 X10^3/uL (2.0-7.7); Basophil# 0.05 X10^3/uL; Basophil% 0.7 % (0-1); Eosinophil# 0.08 X10^3/uL; Eosinophils% 1.1 % (0-5); Hematocrit 43.8 % (37-47); Hemoglobin 14.3 g/dL (12.0-15.0); Lymphocyte # 2.22 X10^3/ul (0.83-4.51); Mean Corp Hgb Conc 32.6 g/dL (32-36); Mean Corpuscular Hgb 30.4 pg (27.0-32.0); Mean Corpuscular Volume 93.2 fL (81-99); Mean Platelet Vol. 11.3 fl (6.2-12.0); Monocyte# 0.47 X10^3/uL; Monocyte% 6.3 % (0-10); NRBC Flagged by Analyzer 0 % (0-5); Neutrophil # 4.57 X10^3/uL (2.7-7.7); Neutrophil % 61.6 % (47-70); Platelet Count 272 K/mm3 (150-450); RBC Distribution Width CV 12.6 % (11.6-14.6); RBC Distribution Width SD 43.2 fl (35.1-43.9); White Blood Count 7.4 K/mm3 (4.4-11.0)
[2022-06-01 18:36] LABS: AST(SGOT) 34 U/L (15-37); Alanine Aminotransfer ALT/SGPT 62 U/L (13-56); Albumin, Serum 3.6 g/dL (3.2-5.0); Alkaline Phosphatase 91 U/L (45-117); Anion Gap 3 (5-15); BUN 14 mg/dL (7-18); BUN/Creat Ratio 16.6 RATIO (10-20); Calcium,Total 8.5 mg/dL (8.5-10.1); Chloride 103 mmol/L (98-107); Creatinine, Serum 0.84 mg/dL (0.55-1.02); EST Glomerular Filtration Rate 75 mL/min (>60); Est Glom Filt Rate - Afr Amer 90 mL/min (>60); Globulin 3.6 g/dL (2.2-4.2); Glucose 112 mg/dL (74-106); Potassium 4.1 mmol/L (3.5-5.1); Protein, Total 7.2 g/dL (6.4-8.2); Sodium Level 135 mmol/L (136-145)
== END | disposition home or self-care (01) ==
LOC: MTLAB 15:27
PROVIDERS: PCP Nurse Practitioner Family; Referring Provider Internal Medicine Rheumatology; Visit Provider Internal Medicine Rheumatology
DX: M06.4 Inflammatory polyarthropathy (principal); Z79.899 Other long term (current) drug therapy
CPT/HCPCS: 36415; 80053; 85025

== ENCOUNTER 2024-03-17 11:23 | Emergency (ER) | payer BC, SELFPAY ==
[2024-03-17 11:25] VITALS: BP 119/76; PULSE 83; RESP 18; TEMP 35.7; O2SAT 100; BMI 31.4
--- NOTE | 2024-03-17 11:51 | EDS_ITS ---
HPI History of Present Illness Chief Complaint: Constipation [facility] Medical History Allergic rhinitis Contact with and (suspected) exposure to other viral communicable diseases Hx of migraines Kidney stone Home Medications ?Medication ?Instructions ?Recorded ?Last Taken ?Type vitamin B complex 1 ea PO DAILY 06/27/19 Unkno wn History ondansetron 4 mg disintegrating 4 mg PO Q8H PRN nausea and 10/28/20 Unknown Rx tablet vomiting #10 tabs Lactobacillus acidophilus 10 mg PO DAILY 11/23/20 Unkn own History (Acidophilus capsule) cyclobenzaprine 5 mg tablet 5 mg PO DIRECTED Unknown History melatonin 5 mg capsule 5 mg PO DAILY PRN Sleep 11/06 09/26 Unknown History turmeric 400 mg capsule 400 mg PO DAILY 11/23/20 Unk nown History alprazolam 0.5 mg tablet 1 mg PO DAILY PRN Anxiety Unknown History fluconazole 150 mg tablet 150 mg PO Q3D 2 doses #2 tab s 09/27/21 Unknown Rx (Diflucan) hydroxychloroquine 200 mg DAILY 09/27/21 Unknow n History metoprolol succinate 50 mg 50 mg PO DAILY 09/27/21 Unk nown History tablet,extended release 24 hr ondansetron 4 mg disintegrating 4 mg PO Q6H PRN PRN Na usea #20 tabs 09/27/21 Unknown Rx tablet oxycodone-acetaminophen 5 mg-325 1 tab PO Q6H PRN PRN pain 5 days 09/27/21 Unknown Rx mg tablet #20 TABLETS sulfamethoxazole 800 1 tab PO BID #10 TABLETS Unknown Rx mg-trimethoprim 160 mg tablet venlafaxine 37.5 mg tablet 75 mg PO DAILY 09/27/21 Unk nown History benzonatate 200 mg capsule 200 mg PO TID PRN cough #20 caps 12/01/21 Unknown Rx methylprednisolone 4 mg tablets in See Rx Instructions PO PER PKG DIR 12/01/21 Unknown Rx a dose pack (Medrol (Breezy)) #21 tabs cephalexin 500 mg capsule 500 mg PO Q12 3 days #6 caps 02/27/22 Unknown Rx ondansetron 4 mg disintegrating 4 mg PO Q8H PRN nausea and 02/27/22 Unknown Rx tablet vomiting #14 tabs oxycodone-acetaminophen 5 mg-325 1 tab PO Q6H PRN pain 3 days #12 03/23/22 Unknown Rx mg tablet (Endocet) tabs amoxicillin 875 mg-potassium 1 tab PO BID #20 tabs Unknown Rx clavulanate 125 mg tablet Allergy/AdvReac Type Severity Reaction Status Date / Time No Known Allergies Allergy Verified 04/04/23 08:24 Family History Father Hypertension Heart disease Surgical History History of cholecystectomy Social History household members: significant other housing: house Smoking Status: Former smoker quit date: 04/27/20 pack-years: 8 alcohol intake: current alcohol intake frequency: a few times a month what type of physical activity do you participate in: none do you feel safe at home: Yes EXAM Physical Exam Const Vital Signs: 03/17/24 11:25 03/17/24 13:23 03/17/24 14:56 Temperature 96.2 F L Temperature Source Temporal Pulse Rate 83 71 74 Respiratory Rate 18 18 18 Blood Pressure 119/76 Blood Pressure Mean 90 Pulse Ox 100 97 Oxygen Delivery Method Room Air Room Air [facility] MDM MDM Narrative Medical decision making narrative: Me HISTORY OF PRESENT ILLNESS: 53-year-old female presents concern for constipation for 2 weeks. Concerned about possible rectal prolapse. Notes as she is a bathroom she feels a bulge or polyp especially with increasing intra-abdominal pressure. Denies blood in stool. Melena. Denies vomiting. No seizure abdominal surgeries. Denies any urinary complaints. REVIEW OF SYSTEMS: Pertinent positives: Constipation, rectal pain Pertinent negatives: [] PHYSICAL EXAM: Nursing triage notes reviewed, Vital signs reviewed Constitutional: please see mdm HENT: MMM Eyes: Pupils equal round and reactive to light, Extraocular muscles intact Neck: No stridor, no JVD, full neck ROM Lungs: Clear to auscultation, No wheezing or rales. No increased work of breathing, no conversational dyspnea, no accessory muscle use, no nasal flaring. No respiratory distress noted Heart: Regular rate and rhythm, No murmurs, No rubs and No gallops, 2+ distal pulses (radial, femoral, posterior tibial) in all extremities Abdomen: Soft, there is no tenderness, rigidity, rebound or guarding, no obvious peritoneal signs, no palpable pulsatile abdominal masses, no auscultated abdominal bruit : No CVAT Extremities: No edema Neuro: No new focal neurological deficits, cranial nerves II through XII intact, 5/5 strength in all present extremities. Intact sensation to light touch in all present extremities, 2+ reflexes bilateral patella tendons. Skin: No rash or lesions noted Rectal: Exam performed dolphin trainer MEDICAL DECISION MAKING: Chief Complaint: Constipation MDM Narrative: The patient was initially hemodynamically stable, afebrile and nontoxic- appearing. Exam without significant peritoneal signs. Rectal exam performed with dolphin trainer shows no evidence of polyp, hemorrhoid or rectal prolapse. I considered the following differential diagnosis: Bowel obstruction, hernia, ALL IMAGES (IF OBTAINED) HAVE BEEN PERSONALLY REVIEWED AND INTERPRETED BY MYSELF. CT scan was obtained and showed no evidence of bowel obstruction or hernia. CBC without leukocytosis, severe anemia, no thrombocytopenia. CMP without evidence of acute kidney injury, significant electrolyte abnormality, anion gap to suggest end organ hypo-perfusion, no evidence of metabolic acidosis with a normal bicarbonate, no evidence of hepatobiliary obstructive pathology. Lipase is wnl indicating no pancreatic inflammation. On reevaluation patient abdominal exam is benign. The synthesis of the patient's history, physical exam, labs images suggest no acute life-limiting etiology specifically no sign of acute surgical abdominal pathology. Recommended general surgery follow-up. The patient and/or family, caregivers express understanding. The patient and/or family, caregivers agrees with the plan. Shared decision making: I will have a discussion with the patient and or visitors regarding risk/benefits of further testing or admission. They will be made aware of of the risk/benefits inherent in this decision they will be given the opportunity to voice understanding. Total critical care time today provided was at least 0 minutes. This excludes separately billable procedures. Critical care time (if documented) is secondary to the patient having high probability of clinically significant/life threatening deterioration in the patient's condition which required my urgent intervention. Impression: 1. Abdominal pain 2. Constipation Dispo: Discharge home This note was generated with [employer] dictation software. It may contain incorrect words, spelling, and punctuation that were not noted in review of the chart prior to signing. Lab Data Labs: Laboratory Results - last 24 hr 03/17/24 12:14 WBC 6.8 RBC 4.75 Hgb 14.0 Hct 43.9 MCV 92.4 MCH 29.5 MCHC 31.9 L RDW Std Deviation 42.8 RDW Coeff of Al 12.6 Plt Count 252 MPV 10.0 Immature Gran % (Auto) 0.300 Neut % (Auto) 69.9 Lymph % (Auto) 24.1 [place] % (Auto) 4.9 Eos % (Auto) 0.4 Baso % (Auto) 0.4 Absolute Neuts (auto) 4.7 Absolute Lymphs (auto) 1.63 Nucleated RBC % 0 Sodium 139 Potassium 3.9 Chloride 110 H Carbon Dioxide 24.0 Anion Gap 5 BUN 14 Creatinine 0.97 Estim Creat Clear Calc 75.96 Est GFR (MDRD) Af Amer 77 Est GFR (MDRD) Non-Af 63 BUN/Creatinine Ratio 14.4 Glucose 87 Calcium 8.8 Total Bilirubin 0.40 AST 10 L ALT 18 Alkaline Phosphatase 96 Total Protein 7.3 Albumin 3.7 Globulin 3.6 Albumin/Globulin Ratio 1.0 Lipase 49 L Radiography Diagnostic Testing: Clinical Impression(s) from Imaging Studies Abdomen CT 03/17/24 12:13 IMPRESSION: No acute CT process. Chronic findings as above. One or more dose reduction techniques were used (e.g., Automated exposure control, adjustment of the mA and/or kV according to patient size, use of iterative reconstruction technique). Reading Location: [facility] Discharge Plan Triage Chief Complaint: Constipation ED Provider: Kwasi Lu Dx/Rx/DC Orders Prescriptions: No Action cyclobenzaprine 5 mg tablet 5 mg PO DIRECTED turmeric 400 mg capsule 400 mg PO DAILY melatonin 5 mg capsule 5 mg PO DAILY PRN (Reason: Sleep) Lactobacillus acidophilus [Acidophilus] Capsule 10 mg PO DAILY methylprednisolone [Medrol (Breezy)] 4 mg tablets,dose pack See Rx Instructions PO PER PKG DIR Qty: 21 0RF Rx Instructions: PO PER PKG DIR benzonatate 200 mg capsule 200 mg PO TID PRN (Reason: cough) Qty: 20 0RF amoxicillin-pot clavulanate 875-125 mg tablet 1 tab PO BID Qty: 20 0RF vitamin B complex 1 EACH capsule 1 ea PO DAILY ondansetron 4 mg tablet,disintegrating 4 mg PO Q8H PRN (Reason: nausea and vomiting) Qty: 10 0RF metoprolol succinate 50 mg tablet extended release 24 hr 50 mg PO DAILY Patient Comments: TAKE 1 TABLET BY MOUTH ONCE DAILY DIRECTED alprazolam 0.5 mg tablet 1 mg PO DAILY PRN (Reason: Anxiety) Patient Comments: TAKE 1 TABLET BY MOUTH ONCE DAILY NEEDED FOR ANXIETY venlafaxine 37.5 mg tablet 75 mg PO DAILY Patient Comments: TAKE 1 TABLET BY MOUTH ONCE DAILY hydroxychloroquine 200 mg DAILY fluconazole [Diflucan] 150 mg tablet 150 mg PO Q3D Qty: 2 0RF oxycodone-acetaminophen [oxycodone-acetaminophen] 5-325 mg tablet 1 tab PO Q6H PRN PRN (Reason: pain) 5 Days Qty: 20 0RF ondansetron [ondansetron] 4 mg tablet,disintegrating 4 mg PO Q6H PRN PRN (Reason: Nausea) Qty: 20 0RF sulfamethoxazole-trimethoprim [sulfamethoxazole-trimethoprim] 800-160 mg tablet 1 tab PO BID Qty: 10 0RF cephalexin 500 mg capsule 500 mg PO Q12 3 Days Qty: 6 0RF ondansetron 4 mg tablet,disintegrating 4 mg PO Q8H PRN (Reason: nausea and vomiting) Qty: 14 0RF oxycodone-acetaminophen [Endocet] 5-325 mg tablet 1 tab PO Q6H PRN (Reason: pain) 3 Days Qty: 12 0RF Primary Care Provider: Addis Haro NP Referrals: Sierra Peña NP-C [Med Staff - Adv Practice Prof] - Print Language: Tristanian
--- NOTE | 2024-03-17 12:13 | CT_ITS ---
PROCEDURE: ABDOMEN/PEL W ORAL CONT ONLY REASON FOR EXAM: Pain TECHNIQUE: Abdomen and pelvis CT without intravenous contrast. COMPARISON: Reviewed. FINDINGS: Lung bases: Clear Liver: Unremarkable. Gallbladder: Absent. Spleen: Unremarkable. Pancreas: Unremarkable. Adrenals: Unremarkable. Kidneys: Unremarkable. Bladder: Unremarkable. Reproductive Organs: Unremarkable. Bowel: Unremarkable. Appendix: Normal. Lymph nodes: No suspicious lymph node enlargement. Vasculature: Major vascular structures are unremarkable. Peritoneum / Retroperitoneum: No ascites. No free air. Bones: Unremarkable. CT/Abdomen/Pel W ORAL Cont Only IMPRESSION: No acute CT process. Chronic findings as above. One or more dose reduction techniques were used (e.g., Automated exposure contr ol, adjustment of the mA and/or kV according to patient size, use of iterative reconstruction technique). Reading Location: [facility]
[2024-03-17 12:24] LABS: Absolute Lymphocyte Count 1.63 X10^3/uL (0.83-4.51); Absolute Neutrophil Count 4.7 X10^3/uL (2.0-7.7); Basophil# 0.03 X10^3/uL; Basophil% 0.4 % (0-1); Eosinophil# 0.03 X10^3/uL; Eosinophils% 0.4 % (0-5); Hematocrit 43.9 % (37-47); Lymphocyte # 1.63 X10^3/ul (0.83-4.51); Lymphocyte % 24.1 % (19-41); Mean Corp Hgb Conc 31.9 g/dL (32-36); Mean Corpuscular Hgb 29.5 pg (27.0-32.0); Mean Corpuscular Volume 92.4 fL (81-99); Monocyte# 0.33 X10^3/uL; Monocyte% 4.9 % (0-10); NRBC Flagged by Analyzer 0 % (0-5); Neutrophil # 4.73 X10^3/uL (2.7-7.7); Neutrophil % 69.9 % (47-70); Platelet Count 252 K/mm3 (150-450); RBC Distribution Width CV 12.6 % (11.6-14.6); RBC Distribution Width SD 42.8 fl (35.1-43.9); Red Blood Count 4.75 M/mm3 (4.2-5.4); White Blood Count 6.8 K/mm3 (4.4-11.0)
[2024-03-17 12:43] LABS: AST(SGOT) 10 U/L (15-37); Alanine Aminotransfer ALT/SGPT 18 U/L (13-56); Albumin, Serum 3.7 g/dL (3.2-5.0); Alkaline Phosphatase 96 U/L (45-117); Anion Gap 5 (5-15); BUN 14 mg/dL (7-18); BUN/Creat Ratio 14.4 RATIO (10-20); Calcium,Total 8.8 mg/dL (8.5-10.1); Chloride 110 mmol/L (98-107); Creatinine, Serum 0.97 mg/dL (0.55-1.02); EST Glomerular Filtration Rate 63 mL/min (>60); Est Glom Filt Rate - Afr Amer 77 mL/min (>60); Estimated Creatinine Clearance 75.96 ml/min; Globulin 3.6 g/dL (2.2-4.2); Glucose 87 mg/dL (74-106); Lipase 49 U/L (73-393); Potassium 3.9 mmol/L (3.5-5.1); Protein, Total 7.3 g/dL (6.4-8.2); Sodium Level 139 mmol/L (136-145)
[2024-03-17 13:23] VITALS: PULSE 71; RESP 18; O2SAT 97
[2024-03-17 14:56] VITALS: PULSE 74; RESP 18
[2024-03-17 15:08] VITALS: BP 121/77; PULSE 71; RESP 17; TEMP 36.8; O2SAT 97
== END 2024-03-17 15:19 | disposition home or self-care (01) ==
PROVIDERS: Emergency Provider Emergency Medicine; PCP Internal Medicine; Visit Provider Emergency Medicine
DX: K59.00 Constipation, unspecified (principal); R10.9 Unspecified abdominal pain; Z79.899 Other long term (current) drug therapy; Z87.891 Personal history of nicotine dependence
CPT/HCPCS: 74176; 80053; 83690; 85025; 99282